=== PATIENT | male | born 1940 | race African-American/Black ===

== ENCOUNTER 2017-04-27 16:09 | Inpatient (IN) | payer MEDICARE ==
[2017-04-27 16:53] LABS: % BASOPHILS 0.2 % (0.0-2.0); % EOSINOPHILS 3.1 % (0.0-5.0); % LYMPHOCYTES 38.8 % (20.0-50.0); % MONOCYTES 10.3 % (2.0-10.0); % NEUTROPHILS 47.6 % (40.0-80.0); HEMATOCRIT 48.3 % (39.0-49.0); HEMOGLOBIN 16.1 gm/dL (12.6-17.4); MEAN CELL VOLUME 93.8 fl (80-99); MEAN CORPUSCULAR HEMOGLOBIN 31.3 pg (27.0-31.0); MEAN CORPUSCULAR HGB CONC 33.4 pg (28.0-36.0); MEAN PLATELET VOLUME 7.9 fl; NEUTROPHILE ABSOLUTE 3.4 Th/cmm (1.8-8.0); RED BLOOD COUNT 5.15 Mil/cmm (3.80-5.80); RED CELL DISTRIBUTION WIDTH 11.8 % (11.5-20.0)
[2017-04-27 17:18] LABS: ALB/GLOB RATIO 1.1 (1.0-1.8); ALKALINE PHOSPHATASE 83 U/L (34-104); ANION GAP 10.5 (7.0-16.0); BILIRUBIN,TOTAL 0.5 mg/dL (0.3-1.0); BUN - UREA NITROGEN 18 mg/dL (7-25); BUN/CREATININE RATIO 25.7; CALCIUM SERUM 10.2 mg/dL (8.6-10.3); CARBON DIOXIDE 24.6 mEq/L (21.0-31.0); CHLORIDE 106 mEq/L (98-107); CREATININE - SERUM 0.7 mg/dL (0.7-1.3); GLUCOSE 96 mg/dL (70-105); POTASSIUM SERUM 4.1 mEq/L (3.5-5.1); SGOT 39 U/L (13-39); SGPT/ALT 50 U/L (7-52); SODIUM SERUM 137 mEq/L (136-145)
[2017-04-27 17:25] LABS: PLATELET COUNT 198 Th/cmm (150-400)
--- NOTE | 2017-04-27 17:37 | ED Physician Chart ---
Chief Complaint/HPI - Patient Information Date Seen:: 04/27/17 Time Seen:: 17:32 Chief Complaint:: aggressive behavior History of Present Illness:: [place] sent from [place] for aggressive behavior with angry outbursts. he is on lexapro. pt has dementia hx and is unable to corroborate hx. no recent illness, fever etc. no n/v/d. Allergies:: Allergies Allergy/AdvReac Type Severity Reaction Status Date / Time No Known Allergies Allergy Verified 06/26/16 17:23 Vitals:: Vital Signs - 8 hr 04/27/17 16:24 Temp 98.9 F HR 74 RR 16 BP 133/81 O2 Sat % 98 Historian:: Patient, Medical Records Review:: Transfer documents Reviewed, Patient unable to respond Review of Systems - Review of Systems General/Constitutional: No fever, No chills, No weight loss, No weakness, No diaphoresis, No edema, No loss of appetite Skin: No skin lesions, No rash, No bruising Head: No headache, No light-headedness Eyes: No loss of vision, No pain, No diplopia ENT: No earache, No nasal drainage, No sore throat, No tinnitus Neck: No neck pain, No swelling, No thyromegaly, No stiffness, No mass noted Cardio Vascular: No chest pain, No palpitations, No PND, No orthopnea, No edema Pulmonary: No SOB, No cough, No sputum, No wheezing GI: No nausea, No vomiting, No diarrhea, No pain, No melena, No hematochezia, No constipation, No hematemesis G/U: No dysuria, No frequency, No hematuria Musculoskeletal: No bone or joint pain, No back pain, No muscle pain Endocrine: No polyuria, No polydipsia Psychiatric: No prior psych history, No depression, No anxiety, No suicidal ideation Hematopoietic: No bruising, No lymphadenopathy Allergic/Immuno: No urticaria, No angioedema Neurological: No syncope, No focal symptoms, No weakness, No paresthesia, No headache, No seizure, No dizziness, No confusion, No vertigo Past Medical History - Past Medical History Past Medical History: CAD, Asthma/COPD, Seizures, Dementia, Other (liver chirosis/encephalopathy, ) Social History: Care Facility Psychiatricy History: Dementia, Other (psychosis) Medication: Reviewed Family Medical History - Family Member Mother History Unknown: Yes Ethnicity: Unknown Living Status: Unknown Hx Family Cancer: No Hx Family Coronary Artery Disease: No Hx Family Congestive Heart Failure: No Hx Family Hypertension: Yes Hx Family Stroke: No Hx Family Diabetes: Yes Hx Family Seizures: No Hx Family Dementia: No Hx Family AIDS: No Hx Family HIV: No Hx Family COPD: No Hx Family Hepatitis: Yes Hx Family Psychiatric Problems: No Hx Family Tuberculosis: No Physical Exam - Physical Examination General/Constitutional: Awake, Well-developed, well-nourished, Alert, No distress, GCS 15, Non-toxic appearing, Ambulatory Other Gen/Cons comments:: thin male...talks to self. currently calm and cooperating but some dementia level is evident. not good med historian. Head: Atraumatic Eyes: Lids, conjuctiva normal, PERRL, EOMI Skin: Nl inspection, No rash, No skin lesions, No ecchymosis, Well hydrated, No lymphadenopathy ENMT: External ears, nose nl, Nasal exam nl, Lips, teeth, gums nl Neck: Nontender, Full ROM w/o pain, No JVD, No nuchal rigidity, No bruit, No mass, No stridor Respiratory: Nl effort/Exclusion, Clear to Auscultation, No Wheeze/Rhonchi/Rales Cardio Vascular: RRR, No murmur, gallop, rubs, NL S1 S2 GI: No tenderness/rebounding/guarding, No organomegaly, No hernia, Normal BS's, Nondistended, No mass/bruits, No McBurney tenderness Other GI comments:: old vert abd sx scar. colostomy at llq of abd appears viable/no infection. pos nabs. nontndr abd. : No CVA tenderness Extremities: No tenderness or effusion, Full ROM, normal strength in all extremities, No edema, Normal digits & nails Neuro/Psych: Alert/oriented, DTR's symmetric, Normal sensory exam, Normal motor strength, Judgement/insight normal, Mood normal, Normal gait, No focal deficits Misc: normal gait, Normal back, No paraspinal tenderness Labs/Radiology/EKG Results - Lab Results Results: Laboratory Tests 04/27/17 04/27/17 16:44 16:44 WBC 7.0 D RBC 5.15 Hgb 16.1 Hct 48.3 MCV 93.8 MCH 31.3 H MCHC Differential 33.4 RDW 11.8 Plt Count 198 D MPV 7.9 Neutrophils % 47.6 Lymphocytes % 38.8 Monocytes % 10.3 H Eosinophils % 3.1 Basophils % 0.2 Sodium 137 Potassium 4.1 Chloride 106 Carbon Dioxide 24.6 Anion Gap 10.5 BUN 18 Creatinine 0.7 Est GFR ( Amer) TNP Est GFR (Non-Af Amer) TNP BUN/Creatinine Ratio 25.7 Glucose 96 Calcium 10.2 Total Bilirubin 0.5 AST 39 ALT 50 Alkaline Phosphatase 83 Total Protein 8.1 Albumin 4.3 Globulin 3.8 Albumin/Globulin Ratio 1.1 - EKG Interpretations EKG Time:: 16:45 Rate & Rhythm: nsr 86 [place]: 66 Intervals: qtc 443 ED Septic Shock - . Is Septic Shock (SBP<90, OR Lactate>4 mmol\L) present?: No - <6hrs of presentation: Vital Signs: Vital Signs - 8 hr /05/06 16:24 Temp 98.9 F HR 74 RR 16 BP 133/81 O2 Sat % 98 Reassessment (Disposition) - Reassessment Reassessment:: 6;30pm //labs ok//pt clear for geripsych//staff aware//awaits transfer// pt has been ok in ed...he is having occasional episodes of rude outburst but at a level of volume and frequency we are able to tolerate so far... Reassessment Condition:: Unchanged - Diagnosis Diagnosis:: 1 agitation / aggression / difficult behavior 2 medically clear for geripsych admission - Patient Disposition Admitted to:: [facility] Condition at Disposition:: Unchanged ED Discharge Plan - Patient Disposition Instructions: Psychosis
[2017-04-27] MEDS ORDERED: Maalox 30 mL Cup PO PRN (20:25)
[2017-04-27] MEDS ORDERED: Magnesium Hydroxide (MOM) 30 mL UDC PO PRN (20:28)
--- NOTE | 2017-04-27 21:06 | Admit Criteria Form ---
Admit Criteria Forms - Admit Criteria Diagnosis: PSYCHIATRIC DISORDERS (Place 'X' for any and all applicable criteria): Ongoing inpatient care may be needed for 1 or more of the following(1)(2)(3)(4)( 6)(7)(8): [X ]I. Danger to self or others not manageable at lower level of care. [ ]II. Grave disability (eg, inability to perform self care necessary at lower level of care) [X ]III. Agitation or inappropriate behavior interfering with care for primary condition (eg, attempting to discontinue lines or drains prematurely, unable to cooperate with respiratory care) [ ]IV. Severe disability or disorder indicated by ALL of the following: [ ]a) Severe behavioral health disorder-related symptoms or condition indicated by 1 or more of the following: [ ]i) Severe problem with cognition, memory, judgment, or impulse control [ ]ii) Severe clinical manifestations (eg, hallucinations, delusions, other acute psychotic symptoms, alice, extreme agitation or anxiety) [ ]b) Patient management at lower level of care is not feasible until acute intervention or modification is initiated. Extended stay beyond goal length of stay for the primary condition may be needed until ALLof the following are present(1)(2)(3)(4)(722)(23): [ ]a) Danger to self or others is absent or manageable at lower level of care [ ]b) Behavior crisis management, including physical or chemical restraints, is required and is not available at a lower level of care. [ ]c) Behavioral symptoms (e.g., agitation, somnolence, inappropriate behavior) are present, and are not manageable at a lower level of care. [ ]d) Patient cannot understand follow-up treatment and crisis plan. [ ]e) Provider and supports are sufficiently available at lower level of care. [ ]f) Patient can participate (e.g., verify absence of plan for harm) and is in needed of monitoring. The [facility] content [facility] by [facility] has been revised. The portions of the content which have been revised are identified through the use of italic text or in bold, and [facility] [employer] has neither reviewed nor approved the modified material. All other unmodified content is copyright [facility]. Please see references footnoted in the original [facility] edition 2017 Admit Criteria Met?: Yes
--- NOTE | 2017-04-27 23:57 | History & Physical ---
ADMIT DATE: 04/27/2017 CHIEF COMPLAINT: Severe psychosis. HISTORY OF PRESENT ILLNESS: The patient is a 76-year-old male with long history of dementia, degenerative joint disease, COPD, admitted to [facility] for advanced treatment. The patient is admitted under Dr. Morris's service. The patient is a poor historian. Apparently, the patient has been very confused and combative. PAST MEDICAL HISTORY: Significant for dementia, degenerative joint disease, COPD, chronic constipation. PAST SURGICAL HISTORY: No recent surgery. ALLERGIES: None. MEDICATIONS: Follow admission reconciliation. SOCIAL HISTORY: Ex-smoker, no alcohol or drugs. FAMILY HISTORY: Noncontributory. REVIEW OF SYSTEMS: RENAL SYSTEM: No history of chronic renal disorder. CARDIOVASCULAR SYSTEM: No coronary artery disease. ENDOCRINE SYSTEM: No diabetes or thyroid problem. GASTROINTESTINAL SYSTEM: No upper or lower gastrointestinal bleed. NEUROLOGICAL SYSTEM: No seizure disorder. MUSCULOSKELETAL SYSTEM: Has degenerative joint disease. PHYSICAL EXAMINATION: GENERAL: He is awake, not coherent. VITAL SIGNS: Temperature 97.8, heart rate 69, blood pressure 155/82. HEENT: Normocephalic. Pupils reacting equal to light and accommodation. Sclerae clear. NECK: Supple. Negative for lymphadenopathy, JVD, or bruit. CHEST: ____ bilateral. Mildly diminished. No wheezing. HEART: S1, S2 normal. No murmur, gallop or rub. ABDOMEN: Soft, bowel sounds positive. EXTREMITIES: No edema. NEUROLOGIC: He is awake, alert, not fully oriented. LABORATORY DATA: White blood cells 7.0, hemoglobin 16.1, hematocrit 48.3, platelet is 198. Sodium 137, potassium 4.1, BUN 18, creatinine 0.7. TSH 1. ASSESSMENT: 1. Chronic obstructive pulmonary disease. 2. Degenerative joint disease. 3. Chronic constipation. 4. Dementia. 5. Psychosis. PLAN: The patient is admitted to the hospital under Dr. Morris's service. Medical problems to be addressed during this hospitalization is psychosis, dementia. Medical problems to be addressed after discharge is dementia. The patient is medically stable for activity. Thank you, Dr. Morris for asking me to see your patient. JOB# [id number]
--- NOTE | 2017-04-28 01:40 | Psychosocial Evaluation ---
DATE OF SERVICE: 04/27/2017 IDENTIFYING DATA: The patient is a 76-year-old [facility] Information obtained by directly interviewing the patient as well as reviewing the admission papers. JUSTIFICATION OF HOSPITALIZATION: The patient is admitted on a voluntary basis in view of his agitated behavior, screaming, and yelling. CHIEF COMPLAINT: "Don't ask me. You know it." HISTORY OF PRESENT ILLNESS: This is one of multiple psychiatric hospitalizations for this patient who is a resident of the [facility]. The patient is reported to have getting easily frustrated, screaming, and yelling and not able to follow the directions. Staff are having difficult time to redirect the patient. Sleep and appetite prior to the hospitalization are reported to be poor. The patient also has been refusing to comply with the treatment. The patient has been referred over here for stabilization. PAST PSYCHIATRIC HISTORY: Please refer to the above. MEDICAL HISTORY AND PHYSICAL EXAMINATION: Per the primary care physician. PHYSICAL OR SEXUAL ABUSE HISTORY: None. LEGAL PROBLEMS: None. STRENGTH AND ASSETS: The patient is poorly motivated. SOCIAL HISTORY: The patient is a resident of the [facility] facility. MENTAL STATUS EXAMINATION: The patient looks his stated age, thin built, superficially cooperative. Eye contact is poor. Mood is noted to be irritable. Affect is constricted and very labile. The patient is screaming and yelling at this time. Impulse control seems to be extremely poor. Insight and judgment are also noted to be very much impaired. The patient has paranoid delusions, but denies any command hallucinations. The patient is getting easily confused and needs to be redirected to get him focused to ____ answer. Attention span and concentration are noted to be poor. The patient's behavior is a great danger to self and others. DIAGNOSTIC IMPRESSION: AXIS IA: Psychotic disorder, unspecified. AXIS IB: Dementia and behavioral disorder secondary to it. AXIS II: None. AXIS III: Per primary care physician. IMMEDIATE TREATMENT PLAN: The patient is going to be observed on inpatient unit, provided with supportive psychotherapy. The patient is going to be closely monitored. I encouraged to participate in groups and verbalize the concerns. Once stabilized, the patient is going to be discharged. The patient is going to be continued on the Lexapro, and the patient is going to be placed on the Seroquel 12.5 mg and the patient is going to be encouraged to participate in the groups and verbalize the concerns rather than to act out. [facility]# [id number]
[2017-04-28] MEDS: Multivitamin w/ Minerals Tab PO SCH (09:58)
[2017-04-28] MEDS: Lactulose 10 Gm/15 mL 30mL UDC PO SCH ×2 (09:58→16:28)
--- NOTE | 2017-04-28 21:58 | Internal Medicine Prog Note ---
Internal Medicine Subjective - Subjective Service Date: 04/28/17 Patient seen and examined:: with staff Patient is:: awake, in bed, confused Per staff patient has:: no adverse event Internal Medicine Objective - Results Result Diagrams: 04/27/17 16:44 04/27/17 16:44 Recent Labs: Laboratory Last Values WBC 7.0 Th/cmm (4.8-10.8) D 04/27/17 16:44 RBC 5.15 Mil/cmm (3.80-5.80) 04/27/17 16:44 Hgb 16.1 gm/dL (12.6-17.4) 04/27/17 16:44 Hct 48.3 % (39.0-49.0) 04/27/17 16:44 MCV 93.8 fl (80-99) 04/27/17 16:44 MCH 31.3 pg (27.0-31.0) H 04/27/17 16:44 MCHC Differential 33.4 pg (28.0-36.0) 04/27/17 16:44 RDW 11.8 % (11.5-20.0) 04/27/17 16:44 Plt Count 198 Th/cmm (150-400) D 04/27/17 16:44 MPV 7.9 fl 04/27/17 16:44 Neutrophils % 47.6 % (40.0-80.0) 04/27/17 16:44 Lymphocytes % 38.8 % (20.0-50.0) 04/27/17 16:44 Monocytes % 10.3 % (2.0-10.0) H 04/27/17 16:44 Eosinophils % 3.1 % (0.0-5.0) 04/27/17 16:44 Basophils % 0.2 % (0.0-2.0) 04/27/17 16:44 Sodium 137 mEq/L (136-145) 04/27/17 16:44 Potassium 4.1 mEq/L (3.5-5.1) 04/27/17 16:44 Chloride 106 mEq/L (98-107) 04/27/17 16:44 Carbon Dioxide 24.6 mEq/L (21.0-31.0) 04/27/17 16:44 Anion Gap 10.5 (7.0-16.0) 04/27/17 16:44 BUN 18 mg/dL (7-25) 04/27/17 16:44 Creatinine 0.7 mg/dL (0.7-1.3) 04/27/17 16:44 Est GFR ( Amer) TNP 04/27/17 16:44 Est GFR (Non-Af Amer) TNP 04/27/17 16:44 BUN/Creatinine Ratio 25.7 04/27/17 16:44 Glucose 96 mg/dL (70-105) 04/27/17 16:44 Calcium 10.2 mg/dL (8.6-10.3) 04/27/17 16:44 Total Bilirubin 0.5 mg/dL (0.3-1.0) 04/27/17 16:44 AST 39 U/L (13-39) 04/27/17 16:44 ALT 50 U/L (7-52) 04/27/17 16:44 Alkaline Phosphatase 83 U/L (34-104) 04/27/17 16:44 Total Protein 8.1 gm/dL (6.0-8.3) 04/27/17 16:44 Albumin 4.3 gm/dL (4.2-5.5) 04/27/17 16:44 Globulin 3.8 gm/dL 04/27/17 16:44 Albumin/Globulin Ratio 1.1 (1.0-1.8) 04/27/17 16:44 TSH 1.00 uIU/ml (0.34-5.60) 04/27/17 16:44 - Physical Exam Vitals and I&O: Vital Signs Temp 98.4 F 04/28/17 14:00 Pulse 78 04/28/17 14:00 Resp 20 04/28/17 14:00 BP 140/94 04/28/17 14:00 Pulse Ox 98 04/28/17 14:00 Intake & Output 04/28/17 04/28/17 04/29/17 06:59 18:59 06:59 Intake Total 180 1200 Balance 180 1200 Weight (lbs) 53.524 kg Intake: Oral 180 1200 Other: # Voids 2 # Bowel Movements 1 1 Stool Characteristics Soft Soft Active Medications: Current Medications Acetaminophen (Tylenol) 650 mg PO Q4HR PRN PRN Reason: Pain (Mild) Stop: 06/26/17 20:24 Al Hydrox/Mg Hydrox/Simethicone (Maalox) 30 ml PO Q4HR PRN PRN Reason: GI DISTRESS Stop: 06/26/17 20:24 Escitalopram Oxalate (Lexapro) 5 mg PO DAILY LAURYN PRN Reason: Protocol Stop: 06/27/17 08:59 Lactulose (Cephulac) 20 gm PO BID LAURYN Stop: 06/27/17 08:59 Last Admin: 04/28/17 16:28 Dose: 20 gm Latanoprost (Xalatan 0.005% Oph Soln) 1 drop EACH EYE HS LAURYN Stop: 06/26/17 20:59 Last Admin: 04/28/17 20:41 Dose: Not Given Lorazepam (Ativan) 0.5 mg PO Q6HR PRN; Protocol PRN Reason: Anxiety Stop: 06/26/17 20:31 Magnesium Hydroxide (Milk Of Magnesia) 30 ml PO HS PRN PRN Reason: Constipation Stop: 06/26/17 20:27 Miscellaneous (Galantamine Hbr [Razadyne]) 8 mg PO BID [facility] Stop: 06/27/17 08:59 Miscellaneous (Timolol [Betimol]) 1 drop OP DAILY [facility] Stop: 06/27/17 08:59 Quetiapine Fumarate (Seroquel) 12.5 mg PO HS LAURYN PRN Reason: Protocol Stop: 06/26/17 20:59 Last Admin: 04/28/17 20:26 Dose: 12.5 mg Zolpidem Tartrate (Ambien) 5 mg PO HS PRN PRN Reason: Insomnia Stop: 06/26/17 20:27 Last Admin: 04/28/17 20:26 Dose: 5 mg General: demented HEENT: NC/AT, PERRLA, EOMI Neck: Supple, No JVD, No thyromegaly, +2 carotid pulse wo bruit, No LAD Lungs: CTAB Cardiovascular: RRR, Normal S1, Normal S2 Abdomen: soft, non-tender Extremities: clear Neurological: no change - Procedures Procedures: Procedures Procedure Code Date EMERGENCY DEPT VISIT 41359 12/02/11 GROUP PSYCHOTHERAPY 39110 10/13/12 OTHER GROUP THERAPY 94.44 09/05/14 Internal Medicine Assmt/Plan - Assessment Assessment: 1.COPD 2.DJD. 3.DEMENTIA - Plan Plan: CONTINUE ON CURRENT MEDICATION AND DIET.
--- NOTE | 2017-04-29 02:14 | Progress Notes ---
DATE: 04/28/2017 SUBJECTIVE: Staff was spoken to. The patient is interviewed. Mood is noted to be dysphoric. Coping skills are noted to be poor. Insight and judgment are also noted to be very much impaired. No side effects to the medications are noted. The patient has been isolative and withdrawn. The patient has been having difficult time to cope with the stress. The patient is currently on Lexapro 5 mg in the morning. The patient has been placed on Seroquel 12.5 mg at bedtime. The patient has been able to tolerate the medications. No side effects to the medications are noted at this time. ASSESSMENT: The patient is still impulsive. PLAN: To continue the patient with the current medications. I encouraged the patient to verbalize the concerns rather than to act out. JOB# [id number]
[2017-04-29] MEDS: Multivitamin w/ Minerals Tab PO SCH (08:52)
[2017-04-29] MEDS: Lactulose 10 Gm/15 mL 30mL UDC PO SCH ×2 (08:52→17:18)
--- NOTE | 2017-04-29 18:21 | Internal Medicine Prog Note ---
Internal Medicine Subjective - Subjective Service Date: 04/29/17 Patient seen and examined:: with staff Patient is:: awake, in bed, confused Per staff patient has:: no adverse event Internal Medicine Objective - Results Result Diagrams: 04/27/17 16:44 04/27/17 16:44 Recent Labs: Laboratory Last Values WBC 7.0 Th/cmm (4.8-10.8) D 04/27/17 16:44 RBC 5.15 Mil/cmm (3.80-5.80) 04/27/17 16:44 Hgb 16.1 gm/dL (12.6-17.4) 04/27/17 16:44 Hct 48.3 % (39.0-49.0) 04/27/17 16:44 MCV 93.8 fl (80-99) 04/27/17 16:44 MCH 31.3 pg (27.0-31.0) H 04/27/17 16:44 MCHC Differential 33.4 pg (28.0-36.0) 04/27/17 16:44 RDW 11.8 % (11.5-20.0) 04/27/17 16:44 Plt Count 198 Th/cmm (150-400) D 04/27/17 16:44 MPV 7.9 fl 04/27/17 16:44 Neutrophils % 47.6 % (40.0-80.0) 04/27/17 16:44 Lymphocytes % 38.8 % (20.0-50.0) 04/27/17 16:44 Monocytes % 10.3 % (2.0-10.0) H 04/27/17 16:44 Eosinophils % 3.1 % (0.0-5.0) 04/27/17 16:44 Basophils % 0.2 % (0.0-2.0) 04/27/17 16:44 Sodium 137 mEq/L (136-145) 04/27/17 16:44 Potassium 4.1 mEq/L (3.5-5.1) 04/27/17 16:44 Chloride 106 mEq/L (98-107) 04/27/17 16:44 Carbon Dioxide 24.6 mEq/L (21.0-31.0) 04/27/17 16:44 Anion Gap 10.5 (7.0-16.0) 04/27/17 16:44 BUN 18 mg/dL (7-25) 04/27/17 16:44 Creatinine 0.7 mg/dL (0.7-1.3) 04/27/17 16:44 Est GFR ( Amer) TNP 04/27/17 16:44 Est GFR (Non-Af Amer) TNP 04/27/17 16:44 BUN/Creatinine Ratio 25.7 04/27/17 16:44 Glucose 96 mg/dL (70-105) 04/27/17 16:44 Calcium 10.2 mg/dL (8.6-10.3) 04/27/17 16:44 Total Bilirubin 0.5 mg/dL (0.3-1.0) 04/27/17 16:44 AST 39 U/L (13-39) 04/27/17 16:44 ALT 50 U/L (7-52) 04/27/17 16:44 Alkaline Phosphatase 83 U/L (34-104) 04/27/17 16:44 Total Protein 8.1 gm/dL (6.0-8.3) 04/27/17 16:44 Albumin 4.3 gm/dL (4.2-5.5) 04/27/17 16:44 Globulin 3.8 gm/dL 04/27/17 16:44 Albumin/Globulin Ratio 1.1 (1.0-1.8) 04/27/17 16:44 TSH 1.00 uIU/ml (0.34-5.60) 04/27/17 16:44 - Physical Exam Vitals and I&O: Vital Signs Temp 98.4 F 04/29/17 06:46 Pulse 69 04/29/17 06:46 Resp 20 04/29/17 06:46 BP 131/79 04/29/17 06:46 Pulse Ox 97 04/29/17 06:46 Intake & Output 04/28/17 04/29/17 04/29/17 18:59 06:59 18:59 Intake Total 1200 120 Balance 1200 120 Intake: Oral 1200 120 Other: # Voids 3 # Bowel Movements 1 Stool Characteristics Soft Soft Active Medications: Current Medications Acetaminophen (Tylenol) 650 mg PO Q4HR PRN PRN Reason: Pain (Mild) Stop: 06/26/17 20:24 Al Hydrox/Mg Hydrox/Simethicone (Maalox) 30 ml PO Q4HR PRN PRN Reason: GI DISTRESS Stop: 06/26/17 20:24 Escitalopram Oxalate (Lexapro) 10 mg PO DAILY LAURYN PRN Reason: Protocol Stop: 06/27/17 08:59 Lactulose (Cephulac) 20 gm PO BID LAURYN Stop: 06/27/17 08:59 Last Admin: 04/29/17 17:18 Dose: 20 gm Latanoprost (Xalatan 0.005% Oph Soln) 1 drop EACH EYE HS LAURYN Stop: 06/26/17 20:59 Last Admin: 04/28/17 20:41 Dose: Not Given Lorazepam (Ativan) 0.5 mg PO Q6HR PRN; Protocol PRN Reason: Anxiety Stop: 06/26/17 20:31 Magnesium Hydroxide (Milk Of Magnesia) 30 ml PO HS PRN PRN Reason: Constipation Stop: 06/26/17 20:27 Miscellaneous (Galantamine Hbr [Razadyne]) 8 mg PO BID LAURYN Stop: 06/27/17 08:59 Miscellaneous (Timolol [Betimol]) 1 drop OP DAILY LAURYN Stop: 06/27/17 08:59 Quetiapine Fumarate (Seroquel) 12.5 mg PO HS LAURYN PRN Reason: Protocol Stop: 06/26/17 20:59 Last Admin: 04/28/17 20:26 Dose: 12.5 mg Zolpidem Tartrate (Ambien) 5 mg PO HS PRN PRN Reason: Insomnia Stop: 06/26/17 20:27 Last Admin: 04/28/17 20:26 Dose: 5 mg General: demented HEENT: NC/AT, PERRLA, EOMI Neck: Supple, No JVD, No thyromegaly, +2 carotid pulse wo bruit, No LAD Lungs: CTAB Cardiovascular: RRR, Normal S1, Normal S2 Abdomen: soft, non-tender Extremities: clear Neurological: no change - Procedures Procedures: Procedures Procedure Code Date EMERGENCY DEPT VISIT 75470 12/02/11 GROUP PSYCHOTHERAPY 31311 10/13/12 OTHER GROUP THERAPY 94.44 09/05/14 Internal Medicine Assmt/Plan - Assessment Assessment: 1.COPD 2.DJD. 3.DEMENTIA 4.CONSTIPATION - Plan Plan: CONTINUE ON CURRENT MEDICATION AND DIET.
--- NOTE | 2017-04-29 21:51 | Progress Notes ---
DATE: 04/29/2017 SUBJECTIVE: Staff was spoken to. The patient is interviewed. Mood is noted to be irritable. Affect is constricted. Coping skills are noted to be poor. The patient has been stating that with the addition of the medication he was able to sleep a little bit better. The patient, however, has been getting easily frustrated. No side effects to the medications are noted at this time. The patient is currently on 5 mg of the citalopram, which is going to be increased to 10 mg in view of his depression and the patient is going to be encouraged to verbalize the concerns rather than to act out. ASSESSMENT: The patient is still depressed. PLAN: To continue the patient with the supportive therapy and followup. JOB# [id number]
[2017-04-30] MEDS: Lactulose 10 Gm/15 mL 30mL UDC PO SCH ×2 (08:48→16:49)
[2017-04-30] MEDS: Multivitamin w/ Minerals Tab PO SCH (08:48)
[2017-04-30] MEDS: Timolol 0.25% Ophth Soln 5 mL Bottle EACH EYE SCH (08:51)
--- NOTE | 2017-04-30 15:14 | Internal Medicine Prog Note ---
Internal Medicine Subjective - Subjective Service Date: 04/30/17 Patient seen and examined:: without staff Patient is:: awake, in bed, confused Per staff patient has:: no adverse event Internal Medicine Objective - Results Result Diagrams: 04/27/17 16:44 04/27/17 16:44 Recent Labs: Laboratory Last Values WBC 7.0 Th/cmm (4.8-10.8) D 04/27/17 16:44 RBC 5.15 Mil/cmm (3.80-5.80) 04/27/17 16:44 Hgb 16.1 gm/dL (12.6-17.4) 04/27/17 16:44 Hct 48.3 % (39.0-49.0) 04/27/17 16:44 MCV 93.8 fl (80-99) 04/27/17 16:44 MCH 31.3 pg (27.0-31.0) H 04/27/17 16:44 MCHC Differential 33.4 pg (28.0-36.0) 04/27/17 16:44 RDW 11.8 % (11.5-20.0) 04/27/17 16:44 Plt Count 198 Th/cmm (150-400) D 04/27/17 16:44 MPV 7.9 fl 04/27/17 16:44 Neutrophils % 47.6 % (40.0-80.0) 04/27/17 16:44 Lymphocytes % 38.8 % (20.0-50.0) 04/27/17 16:44 Monocytes % 10.3 % (2.0-10.0) H 04/27/17 16:44 Eosinophils % 3.1 % (0.0-5.0) 04/27/17 16:44 Basophils % 0.2 % (0.0-2.0) 04/27/17 16:44 Sodium 137 mEq/L (136-145) 04/27/17 16:44 Potassium 4.1 mEq/L (3.5-5.1) 04/27/17 16:44 Chloride 106 mEq/L (98-107) 04/27/17 16:44 Carbon Dioxide 24.6 mEq/L (21.0-31.0) 04/27/17 16:44 Anion Gap 10.5 (7.0-16.0) 04/27/17 16:44 BUN 18 mg/dL (7-25) 04/27/17 16:44 Creatinine 0.7 mg/dL (0.7-1.3) 04/27/17 16:44 Est GFR ( Amer) TNP 04/27/17 16:44 Est GFR (Non-Af Amer) TNP 04/27/17 16:44 BUN/Creatinine Ratio 25.7 04/27/17 16:44 Glucose 96 mg/dL (70-105) 04/27/17 16:44 Calcium 10.2 mg/dL (8.6-10.3) 04/27/17 16:44 Total Bilirubin 0.5 mg/dL (0.3-1.0) 04/27/17 16:44 AST 39 U/L (13-39) 04/27/17 16:44 ALT 50 U/L (7-52) 04/27/17 16:44 Alkaline Phosphatase 83 U/L (34-104) 04/27/17 16:44 Total Protein 8.1 gm/dL (6.0-8.3) 04/27/17 16:44 Albumin 4.3 gm/dL (4.2-5.5) 04/27/17 16:44 Globulin 3.8 gm/dL 04/27/17 16:44 Albumin/Globulin Ratio 1.1 (1.0-1.8) 04/27/17 16:44 TSH 1.00 uIU/ml (0.34-5.60) 04/27/17 16:44 - Physical Exam Vitals and I&O: Vital Signs Temp 98.4 F 04/29/17 06:46 Pulse 69 04/29/17 06:46 Resp 20 04/29/17 06:46 BP 131/79 04/29/17 06:46 Pulse Ox 97 04/29/17 06:46 Intake & Output 04/29/17 04/30/17 04/30/17 18:59 06:59 18:59 Intake Total 800 Balance 800 Intake: Oral 800 Other: # Voids 1 Stool Characteristics Soft Soft Brown Brown Active Medications: Current Medications Acetaminophen (Tylenol) 650 mg PO Q4HR PRN PRN Reason: Pain (Mild) Stop: 06/26/17 20:24 Al Hydrox/Mg Hydrox/Simethicone (Maalox) 30 ml PO Q4HR PRN PRN Reason: GI DISTRESS Stop: 06/26/17 20:24 Escitalopram Oxalate (Lexapro) 10 mg PO DAILY LAURYN PRN Reason: Protocol Stop: 06/27/17 08:59 Last Admin: 04/30/17 08:49 Dose: 10 mg Galantamine Hydrobromide (Razadyne) 8 mg PO BID LAURYN Stop: 06/27/17 08:59 Last Admin: 04/30/17 08:49 Dose: 8 mg Lactulose (Cephulac) 20 gm PO BID LAURYN Stop: 06/27/17 08:59 Last Admin: 04/30/17 08:48 Dose: 20 gm Latanoprost (Xalatan 0.005% Ophth Soln) 1 drop EACH EYE HS LAURYN Stop: 06/26/17 20:59 Last Admin: 04/29/17 21:06 Dose: 1 drop Lorazepam (Ativan) 0.5 mg PO Q6HR PRN; Protocol PRN Reason: Anxiety Stop: 06/26/17 20:31 Magnesium Hydroxide (Milk Of Magnesia) 30 ml PO HS PRN PRN Reason: Constipation Stop: 06/26/17 20:27 Quetiapine Fumarate (Seroquel) 12.5 mg PO HS LAURYN PRN Reason: Protocol Stop: 06/26/17 20:59 Last Admin: 04/29/17 21:06 Dose: 12.5 mg Timolol Maleate (Timoptic 0.25% Ophth Soln) 1 drop EACH EYE DAILY LAURYN Stop: 06/27/17 08:59 Last Admin: 04/30/17 08:51 Dose: 1 drop Zolpidem Tartrate (Ambien) 5 mg PO HS PRN PRN Reason: Insomnia Stop: 06/26/17 20:27 Last Admin: 04/28/17 20:26 Dose: 5 mg General: demented HEENT: NC/AT, PERRLA, EOMI Neck: Supple, No JVD, No thyromegaly, +2 carotid pulse wo bruit, No LAD Lungs: CTAB Cardiovascular: RRR, Normal S1, Normal S2 Abdomen: soft, non-tender Extremities: clear Neurological: no change - Procedures Procedures: Procedures Procedure Code Date EMERGENCY DEPT VISIT 57766 12/02/11 GROUP PSYCHOTHERAPY 35101 10/13/12 OTHER GROUP THERAPY 94.44 09/05/14 Internal Medicine Assmt/Plan - Assessment Assessment: 1.COPD 2.DJD. 3.DEMENTIA 4.CONSTIPATION - Plan Plan: CONTINUE ON CURRENT MEDICATION AND DIET.
--- NOTE | 2017-04-30 23:33 | Progress Notes ---
DATE: 04/30/2017 SUBJECTIVE: Staff was spoken to. The patient is interviewed. Mood is noted to be less irritable, but the patient is noted to be depressed, isolative, and withdrawn. Coping skills are noted to be poor. The patient has been still getting frustrated and has been getting paranoid. No side effects to the medications are noted. The patient is currently on 12.5 mg of the Seroquel, which is going to be increased to 25 mg. The patient is going to be followed up with supportive therapy. The patient is going to be closely monitored for any adverse effects. ASSESSMENT: The patient is still depressed and agitated. PLAN: To continue the patient with Lexapro and Seroquel and follow up. JOB# [id number]
[2017-05-01] MEDS: Lactulose 10 Gm/15 mL 30mL UDC PO SCH ×2 (08:50→16:44)
[2017-05-01] MEDS: Multivitamin w/ Minerals Tab PO SCH (08:52)
[2017-05-01] MEDS: Timolol 0.25% Ophth Soln 5 mL Bottle EACH EYE SCH (08:52)
--- NOTE | 2017-05-01 12:06 | Progress Notes ---
DATE: 05/01/2017 SUBJECTIVE: Staff was spoken to. The patient is interviewed. Mood is noted to be depressed. Affect is constricted. The patient is isolated and withdrawn. Coping skills are noted to be poor at this time. The patient has been not presenting with any major behavioral problem, but tends to be isolative and withdrawn. No side effects to the medications are noted. The patient is also reported to have been sleeping all the time and hence it is decided to hold the Seroquel tonight. PLAN: Continue the Lexapro 10 mg and follow the patient with supportive therapy and patient is going to be closely monitored for any aggressive behavior. JOB# [id number]
--- NOTE | 2017-05-01 15:35 | Internal Medicine Prog Note ---
Internal Medicine Subjective - Subjective Service Date: 05/01/17 Patient seen and examined:: without staff Patient is:: awake, in bed, confused Per staff patient has:: no adverse event Internal Medicine Objective - Results Result Diagrams: 04/27/17 16:44 04/27/17 16:44 Recent Labs: Laboratory Last Values WBC 7.0 Th/cmm (4.8-10.8) D 04/27/17 16:44 RBC 5.15 Mil/cmm (3.80-5.80) 04/27/17 16:44 Hgb 16.1 gm/dL (12.6-17.4) 04/27/17 16:44 Hct 48.3 % (39.0-49.0) 04/27/17 16:44 MCV 93.8 fl (80-99) 04/27/17 16:44 MCH 31.3 pg (27.0-31.0) H 04/27/17 16:44 MCHC Differential 33.4 pg (28.0-36.0) 04/27/17 16:44 RDW 11.8 % (11.5-20.0) 04/27/17 16:44 Plt Count 198 Th/cmm (150-400) D 04/27/17 16:44 MPV 7.9 fl 04/27/17 16:44 Neutrophils % 47.6 % (40.0-80.0) 04/27/17 16:44 Lymphocytes % 38.8 % (20.0-50.0) 04/27/17 16:44 Monocytes % 10.3 % (2.0-10.0) H 04/27/17 16:44 Eosinophils % 3.1 % (0.0-5.0) 04/27/17 16:44 Basophils % 0.2 % (0.0-2.0) 04/27/17 16:44 Sodium 137 mEq/L (136-145) 04/27/17 16:44 Potassium 4.1 mEq/L (3.5-5.1) 04/27/17 16:44 Chloride 106 mEq/L (98-107) 04/27/17 16:44 Carbon Dioxide 24.6 mEq/L (21.0-31.0) 04/27/17 16:44 Anion Gap 10.5 (7.0-16.0) 04/27/17 16:44 BUN 18 mg/dL (7-25) 04/27/17 16:44 Creatinine 0.7 mg/dL (0.7-1.3) 04/27/17 16:44 Est GFR ( Amer) TNP 04/27/17 16:44 Est GFR (Non-Af Amer) TNP 04/27/17 16:44 BUN/Creatinine Ratio 25.7 04/27/17 16:44 Glucose 96 mg/dL (70-105) 04/27/17 16:44 Calcium 10.2 mg/dL (8.6-10.3) 04/27/17 16:44 Total Bilirubin 0.5 mg/dL (0.3-1.0) 04/27/17 16:44 AST 39 U/L (13-39) 04/27/17 16:44 ALT 50 U/L (7-52) 04/27/17 16:44 Alkaline Phosphatase 83 U/L (34-104) 04/27/17 16:44 Total Protein 8.1 gm/dL (6.0-8.3) 04/27/17 16:44 Albumin 4.3 gm/dL (4.2-5.5) 04/27/17 16:44 Globulin 3.8 gm/dL 04/27/17 16:44 Albumin/Globulin Ratio 1.1 (1.0-1.8) 04/27/17 16:44 TSH 1.00 uIU/ml (0.34-5.60) 04/27/17 16:44 - Physical Exam Vitals and I&O: Vital Signs Temp 98.6 F 05/01/17 06:15 Pulse 70 05/01/17 06:15 Resp 18 05/01/17 06:15 BP 139/80 05/01/17 06:15 Pulse Ox 99 05/01/17 06:15 Intake & Output 04/30/17 05/01/17 05/01/17 18:59 06:59 18:59 Intake Total 900 480 Output Total 400 Balance 900 80 Intake: Oral 900 480 Output: Stool 400 Other: # Voids 1 1 Stool Characteristics Soft Brown Active Medications: Current Medications Acetaminophen (Tylenol) 650 mg PO Q4HR PRN PRN Reason: Pain (Mild) Stop: 06/26/17 20:24 Al Hydrox/Mg Hydrox/Simethicone (Maalox) 30 ml PO Q4HR PRN PRN Reason: GI DISTRESS Stop: 06/26/17 20:24 Escitalopram Oxalate (Lexapro) 10 mg PO DAILY LAURYN PRN Reason: Protocol Stop: 06/27/17 08:59 Last Admin: 05/01/17 08:52 Dose: 10 mg Galantamine Hydrobromide (Razadyne) 8 mg PO BID LAURYN Stop: 06/27/17 08:59 Last Admin: 05/01/17 08:51 Dose: 8 mg Lactulose (Cephulac) 20 gm PO BID LAURYN Stop: 06/27/17 08:59 Last Admin: 05/01/17 08:50 Dose: 20 gm Latanoprost (Xalatan 0.005% Oph Soln) 1 drop EACH EYE HS LAURYN Stop: 06/26/17 20:59 Last Admin: 04/30/17 21:48 Dose: 1 drop Lorazepam (Ativan) 0.5 mg PO Q6HR PRN; Protocol PRN Reason: Anxiety Stop: 06/26/17 20:31 Magnesium Hydroxide (Milk Of Magnesia) 30 ml PO HS PRN PRN Reason: Constipation Stop: 06/26/17 20:27 Timolol Maleate (Timoptic 0.25% Oph Soln) 1 drop EACH EYE DAILY LAURYN Stop: 06/27/17 08:59 Last Admin: 05/01/17 08:52 Dose: 1 drop Zolpidem Tartrate (Ambien) 5 mg PO HS PRN PRN Reason: Insomnia Stop: 06/26/17 20:27 Last Admin: 04/28/17 20:26 Dose: 5 mg General: demented HEENT: NC/AT, PERRLA, EOMI Neck: Supple, No JVD, No thyromegaly, +2 carotid pulse wo bruit, No LAD Lungs: CTAB Cardiovascular: RRR, Normal S1, Normal S2 Abdomen: soft, non-tender Extremities: clear Neurological: no change - Procedures Procedures: Procedures Procedure Code Date EMERGENCY DEPT VISIT 88662 12/02/11 GROUP PSYCHOTHERAPY 05805 10/13/12 OTHER GROUP THERAPY 94.44 09/05/14 Internal Medicine Assmt/Plan - Assessment Assessment: 1.COPD 2.DJD. 3.DEMENTIA 4.CONSTIPATION - Plan Plan: CONTINUE ON CURRENT MEDICATION AND DIET. Nutritional Asmnt/Malnutr-PDOC - Dietary Evaluation Malnutrition Findings (Please click <Entered> for more info): Nutritional Asmnt/Malnutrition Start: 04/28/17 11: 48 Text: Status: Complete Freq: Document 04/30/17 19:00 [facility] (Rec: 04/30/17 19:07 [facility] [id number]) Nutritional Asmnt/Malnutrition Patient General Information Nutritional Screening High Risk Screening Diagnosis Psychotic disorder, dementia Pertinent Medical Hx/Surgical Hx Dementia, DJD, COPD, chronic constipation Subjective Information Pt is a 76-year-old male from [facility] admitted with chief complaint of severe psychosis. Pt was asleep during time of visit. Mild temporal wasting noted. RD weighed pt's wt via bedscale. 127.4#/57.9 kg with BMI 17.3 kg/m2. Pt has colostomy. Current Diet Order/ Nutrition Support Regular Patient / S.O Can't verbalize diet edu Pertinent Medications Reviewed Pertinent Labs Reviewed Nutritional Hx/Data Height 1.83 m Height (Calculated Centimeters) 182.9 Current Weight (lbs) 57.788 kg Weight (Calculated Kilograms) 57.8 Weight (Calculated Grams) 71928.7 [place] Body Weight 172 % [place] Body Weight 74 Weight Status Underweight GI Symptoms GI Symptoms None Food Allergies No Skin Integrity/Comment: Abdirizak 19. Skin intact. Current %PO Good (75-100%) Estimated Nutritional Goals BEE in Kcals: Adj wt of IBW Calories/Kcals/Kg Based on IBW 78.2 kg to promote wt change towards IBW Kcals Calculated 4962-8624 kcals/day (25-30 kcals/kg) Protein: Adj wt of IBW Protein g/kg: Based on IBW 78.2 kg to promote wt change towards IBW Protein Calculated 78-94 gm/day (1-1.2 gm/kg) Fluid: ml 7096-0013 ml/day (1 ml/kcal) Nutritional Problem 1. Problem Problem Underwt related to Etiology possible inadequate energy intake vs increased energy expenditure, or malabsorption as evidenced by Signs/Symptoms: BMI 17.3 kg/m2. Malnutrition Alert Body Fat Depletion (Non-Severe) Mild Depletion Malnutrition Related to Morbid Obesity Malnutrition related to morbid obesity No Intervention/Recommendation Comments 1. Continue with current diet as it is adequate to meet estimated nutritional needs. Encourage consistent oral intake. 2. Will monitor need for nutrition oral supplement at follow up if PO intake decreases. Expected Outcomes/Goals Expected Outcomes/Goals Upward wt trend towards IBW. Physician Parameters for PEM Normal Weight % 75% - 85% (Moderate) Body Mass Index (BMI) 16 - 17.9 (Moderate) Serum Albumin (g/dl) 3.5 - 5.0 (Normal)
[2017-05-02] MEDS: Lactulose 10 Gm/15 mL 30mL UDC PO SCH ×2 (08:28→17:04)
[2017-05-02] MEDS: Multivitamin w/ Minerals Tab PO SCH (08:29)
[2017-05-02] MEDS: Timolol 0.25% Ophth Soln 5 mL Bottle EACH EYE SCH (08:29)
--- NOTE | 2017-05-02 17:08 | Internal Medicine Prog Note ---
Internal Medicine Subjective - Subjective Service Date: 05/02/17 Patient seen and examined:: without staff Patient is:: awake, in bed, confused Per staff patient has:: no adverse event Internal Medicine Objective - Results Result Diagrams: 04/27/17 16:44 04/27/17 16:44 Recent Labs: Laboratory Last Values WBC 7.0 Th/cmm (4.8-10.8) D 04/27/17 16:44 RBC 5.15 Mil/cmm (3.80-5.80) 04/27/17 16:44 Hgb 16.1 gm/dL (12.6-17.4) 04/27/17 16:44 Hct 48.3 % (39.0-49.0) 04/27/17 16:44 MCV 93.8 fl (80-99) 04/27/17 16:44 MCH 31.3 pg (27.0-31.0) H 04/27/17 16:44 MCHC Differential 33.4 pg (28.0-36.0) 04/27/17 16:44 RDW 11.8 % (11.5-20.0) 04/27/17 16:44 Plt Count 198 Th/cmm (150-400) D 04/27/17 16:44 MPV 7.9 fl 04/27/17 16:44 Neutrophils % 47.6 % (40.0-80.0) 04/27/17 16:44 Lymphocytes % 38.8 % (20.0-50.0) 04/27/17 16:44 Monocytes % 10.3 % (2.0-10.0) H 04/27/17 16:44 Eosinophils % 3.1 % (0.0-5.0) 04/27/17 16:44 Basophils % 0.2 % (0.0-2.0) 04/27/17 16:44 Sodium 137 mEq/L (136-145) 04/27/17 16:44 Potassium 4.1 mEq/L (3.5-5.1) 04/27/17 16:44 Chloride 106 mEq/L (98-107) 04/27/17 16:44 Carbon Dioxide 24.6 mEq/L (21.0-31.0) 04/27/17 16:44 Anion Gap 10.5 (7.0-16.0) 04/27/17 16:44 BUN 18 mg/dL (7-25) 04/27/17 16:44 Creatinine 0.7 mg/dL (0.7-1.3) 04/27/17 16:44 Est GFR ( Amer) TNP 04/27/17 16:44 Est GFR (Non-Af Amer) TNP 04/27/17 16:44 BUN/Creatinine Ratio 25.7 04/27/17 16:44 Glucose 96 mg/dL (70-105) 04/27/17 16:44 Calcium 10.2 mg/dL (8.6-10.3) 04/27/17 16:44 Total Bilirubin 0.5 mg/dL (0.3-1.0) 04/27/17 16:44 AST 39 U/L (13-39) 04/27/17 16:44 ALT 50 U/L (7-52) 04/27/17 16:44 Alkaline Phosphatase 83 U/L (34-104) 04/27/17 16:44 Total Protein 8.1 gm/dL (6.0-8.3) 04/27/17 16:44 Albumin 4.3 gm/dL (4.2-5.5) 04/27/17 16:44 Globulin 3.8 gm/dL 04/27/17 16:44 Albumin/Globulin Ratio 1.1 (1.0-1.8) 04/27/17 16:44 TSH 1.00 uIU/ml (0.34-5.60) 04/27/17 16:44 - Physical Exam Vitals and I&O: Vital Signs Temp 98.1 F 05/02/17 15:32 Pulse 76 05/02/17 15:32 Resp 18 05/02/17 15:32 BP 125/67 05/02/17 15:32 Pulse Ox 97 05/02/17 15:32 Intake & Output 05/01/17 05/02/17 05/02/17 18:59 06:59 18:59 Intake Total 120 Balance 120 Intake: Oral 120 Other: # Voids 3 Active Medications: Current Medications Acetaminophen (Tylenol) 650 mg PO Q4HR PRN PRN Reason: Pain (Mild) Stop: 06/26/17 20:24 Al Hydrox/Mg Hydrox/Simethicone (Maalox) 30 ml PO Q4HR PRN PRN Reason: GI DISTRESS Stop: 06/26/17 20:24 Escitalopram Oxalate (Lexapro) 10 mg PO DAILY LAURYN PRN Reason: Protocol Stop: 06/27/17 08:59 Last Admin: 05/02/17 08:29 Dose: 10 mg Galantamine Hydrobromide (Razadyne) 8 mg PO BID LAURYN Stop: 06/27/17 08:59 Last Admin: 05/02/17 17:06 Dose: 8 mg Lactulose (Cephulac) 20 gm PO BID LAURYN Stop: 06/27/17 08:59 Last Admin: 05/02/17 17:04 Dose: 20 gm Latanoprost (Xalatan 0.005% Oph Soln) 1 drop EACH EYE HS LAURYN Stop: 06/26/17 20:59 Last Admin: 05/01/17 20:43 Dose: 1 drop Lorazepam (Ativan) 0.5 mg PO Q6HR PRN; Protocol PRN Reason: Anxiety Stop: 06/26/17 20:31 Magnesium Hydroxide (Milk Of Magnesia) 30 ml PO HS PRN PRN Reason: Constipation Stop: 06/26/17 20:27 Timolol Maleate (Timoptic 0.25% Ophth Soln) 1 drop EACH EYE DAILY LAURYN Stop: 06/27/17 08:59 Last Admin: 05/02/17 08:29 Dose: 1 drop Zolpidem Tartrate (Ambien) 5 mg PO HS PRN PRN Reason: Insomnia Stop: 06/26/17 20:27 Last Admin: 05/01/17 23:01 Dose: 5 mg General: demented HEENT: NC/AT, PERRLA, EOMI Neck: Supple, No JVD, No thyromegaly, +2 carotid pulse wo bruit, No LAD Lungs: CTAB Cardiovascular: RRR, Normal S1, Normal S2 Abdomen: soft, non-tender Extremities: clear Neurological: no change - Procedures Procedures: Procedures Procedure Code Date EMERGENCY DEPT VISIT 68563 12/02/11 GROUP PSYCHOTHERAPY 56538 10/13/12 OTHER GROUP THERAPY 94.44 09/05/14 Internal Medicine Assmt/Plan - Assessment Assessment: 1.COPD 2.DJD. 3.DEMENTIA 4.CONSTIPATION - Plan Plan: CONTINUE ON CURRENT MEDICATION AND DIET. Nutritional Asmnt/Malnutr-PDOC - Dietary Evaluation Malnutrition Findings (Please click <Entered> for more info): Nutritional Asmnt/Malnutrition Start: 04/28/17 11: 48 Text: Status: Complete Freq: Document 04/30/17 19:00 [facility] (Rec: 04/30/17 19:07 [facility] [id number]) Nutritional Asmnt/Malnutrition Patient General Information Nutritional Screening High Risk Screening Diagnosis Psychotic disorder, dementia Pertinent Medical Hx/Surgical Hx Dementia, DJD, COPD, chronic constipation Subjective Information Pt is a 76-year-old male from [facility] admitted with chief complaint of severe psychosis. Pt was asleep during time of visit. Mild temporal wasting noted. RD weighed pt's wt via bedscale. 127.4#/57.9 kg with BMI 17.3 kg/m2. Pt has colostomy. Current Diet Order/ Nutrition Support Regular Patient / S.O Can't verbalize diet edu Pertinent Medications Reviewed Pertinent Labs Reviewed Nutritional Hx/Data Height 1.83 m Height (Calculated Centimeters) 182.9 Current Weight (lbs) 57.788 kg Weight (Calculated Kilograms) 57.8 Weight (Calculated Grams) 03240.7 [place] Body Weight 172 % [place] Body Weight 74 Weight Status Underweight GI Symptoms GI Symptoms None Food Allergies No Skin Integrity/Comment: Abdirizak 19. Skin intact. Current %PO Good (75-100%) Estimated Nutritional Goals BEE in Kcals: Adj wt of IBW Calories/Kcals/Kg Based on IBW 78.2 kg to promote wt change towards IBW Kcals Calculated 5897-2753 kcals/day (25-30 kcals/kg) Protein: Adj wt of IBW Protein g/kg: Based on IBW 78.2 kg to promote wt change towards IBW Protein Calculated 78-94 gm/day (1-1.2 gm/kg) Fluid: ml 9227-4199 ml/day (1 ml/kcal) Nutritional Problem 1. Problem Problem Underwt related to Etiology possible inadequate energy intake vs increased energy expenditure, or malabsorption as evidenced by Signs/Symptoms: BMI 17.3 kg/m2. Malnutrition Alert Body Fat Depletion (Non-Severe) Mild Depletion Malnutrition Related to Morbid Obesity Malnutrition related to morbid obesity No Intervention/Recommendation Comments 1. Continue with current diet as it is adequate to meet estimated nutritional needs. Encourage consistent oral intake. 2. Will monitor need for nutrition oral supplement at follow up if PO intake decreases. Expected Outcomes/Goals Expected Outcomes/Goals Upward wt trend towards IBW. Physician Parameters for PEM Normal Weight % 75% - 85% (Moderate) Body Mass Index (BMI) 16 - 17.9 (Moderate) Serum Albumin (g/dl) 3.5 - 5.0 (Normal)
--- NOTE | 2017-05-02 20:03 | Progress Notes ---
DATE: 05/02/2017 PSYCHIATRIC PROGRESS NOTE TIME PATIENT SEEN: 11:15 a.m. SUBJECTIVE: Staff was spoken to. The patient is interviewed. Mood is noted to be irritable. Affect is constricted. Insight and judgment are noted to be still impaired. The patient continues to be isolative and withdrawn. The patient has not been presenting with any aggression, but depression seems to be a major concern at this time. No side effects to the medications are noted. The patient is being closely monitored at this time for aggressive behavior. ASSESSMENT: The patient is still depressed. PLAN: To continue the patient with supportive therapy. I encouraged the patient to verbalize the concerns rather than to act out. Please note that the patient is not ready to be discharged to a lower level of care because of his depression and aggressive behavior. JOB# [id number]
[2017-05-03] MEDS: Multivitamin w/ Minerals Tab PO SCH (08:31)
[2017-05-03] MEDS: Timolol 0.25% Ophth Soln 5 mL Bottle EACH EYE SCH (08:32)
[2017-05-03] MEDS: Lactulose 10 Gm/15 mL 30mL UDC PO SCH ×2 (08:34→16:19)
--- NOTE | 2017-05-03 18:25 | Internal Medicine Prog Note ---
Internal Medicine Subjective - Subjective Service Date: 05/03/17 Patient seen and examined:: with staff Patient is:: awake, in bed, confused Per staff patient has:: no adverse event Internal Medicine Objective - Results Result Diagrams: 04/27/17 16:44 04/27/17 16:44 Recent Labs: Laboratory Last Values WBC 7.0 Th/cmm (4.8-10.8) D 04/27/17 16:44 RBC 5.15 Mil/cmm (3.80-5.80) 04/27/17 16:44 Hgb 16.1 gm/dL (12.6-17.4) 04/27/17 16:44 Hct 48.3 % (39.0-49.0) 04/27/17 16:44 MCV 93.8 fl (80-99) 04/27/17 16:44 MCH 31.3 pg (27.0-31.0) H 04/27/17 16:44 MCHC Differential 33.4 pg (28.0-36.0) 04/27/17 16:44 RDW 11.8 % (11.5-20.0) 04/27/17 16:44 Plt Count 198 Th/cmm (150-400) D 04/27/17 16:44 MPV 7.9 fl 04/27/17 16:44 Neutrophils % 47.6 % (40.0-80.0) 04/27/17 16:44 Lymphocytes % 38.8 % (20.0-50.0) 04/27/17 16:44 Monocytes % 10.3 % (2.0-10.0) H 04/27/17 16:44 Eosinophils % 3.1 % (0.0-5.0) 04/27/17 16:44 Basophils % 0.2 % (0.0-2.0) 04/27/17 16:44 Sodium 137 mEq/L (136-145) 04/27/17 16:44 Potassium 4.1 mEq/L (3.5-5.1) 04/27/17 16:44 Chloride 106 mEq/L (98-107) 04/27/17 16:44 Carbon Dioxide 24.6 mEq/L (21.0-31.0) 04/27/17 16:44 Anion Gap 10.5 (7.0-16.0) 04/27/17 16:44 BUN 18 mg/dL (7-25) 04/27/17 16:44 Creatinine 0.7 mg/dL (0.7-1.3) 04/27/17 16:44 Est GFR ( Amer) TNP 04/27/17 16:44 Est GFR (Non-Af Amer) TNP 04/27/17 16:44 BUN/Creatinine Ratio 25.7 04/27/17 16:44 Glucose 96 mg/dL (70-105) 04/27/17 16:44 Calcium 10.2 mg/dL (8.6-10.3) 04/27/17 16:44 Total Bilirubin 0.5 mg/dL (0.3-1.0) 04/27/17 16:44 AST 39 U/L (13-39) 04/27/17 16:44 ALT 50 U/L (7-52) 04/27/17 16:44 Alkaline Phosphatase 83 U/L (34-104) 04/27/17 16:44 Total Protein 8.1 gm/dL (6.0-8.3) 04/27/17 16:44 Albumin 4.3 gm/dL (4.2-5.5) 04/27/17 16:44 Globulin 3.8 gm/dL 04/27/17 16:44 Albumin/Globulin Ratio 1.1 (1.0-1.8) 04/27/17 16:44 TSH 1.00 uIU/ml (0.34-5.60) 04/27/17 16:44 - Physical Exam Vitals and I&O: Vital Signs Temp 98.2 F 05/03/17 15:52 Pulse 60 05/03/17 15:52 Resp 18 05/03/17 15:52 BP 130/78 05/03/17 15:52 Pulse Ox 96 05/03/17 15:52 Intake & Output 05/02/17 05/03/17 05/03/17 18:59 06:59 18:59 Intake Total 800 120 Balance 800 120 Intake: Oral 800 120 Other: # Voids 4 3 # Bowel Movements 1 1 Stool Characteristics Liquid Active Medications: Current Medications Acetaminophen (Tylenol) 650 mg PO Q4HR PRN PRN Reason: Pain (Mild) Stop: 06/26/17 20:24 Al Hydrox/Mg Hydrox/Simethicone (Maalox) 30 ml PO Q4HR PRN PRN Reason: GI DISTRESS Stop: 06/26/17 20:24 Escitalopram Oxalate (Lexapro) 10 mg PO DAILY LAURYN PRN Reason: Protocol Stop: 06/27/17 08:59 Last Admin: 05/03/17 08:31 Dose: 10 mg Galantamine Hydrobromide (Razadyne) 8 mg PO BID LAURYN Stop: 06/27/17 08:59 Last Admin: 05/03/17 16:19 Dose: 8 mg Lactulose (Cephulac) 20 gm PO BID LAURYN Stop: 06/27/17 08:59 Last Admin: 05/03/17 16:19 Dose: 20 gm Latanoprost (Xalatan 0.005% Oph Soln) 1 drop EACH EYE HS LAURYN Stop: 06/26/17 20:59 Last Admin: 05/02/17 20:19 Dose: 1 drop Lorazepam (Ativan) 0.5 mg PO Q6HR PRN; Protocol PRN Reason: Anxiety Stop: 06/26/17 20:31 Magnesium Hydroxide (Milk Of Magnesia) 30 ml PO HS PRN PRN Reason: Constipation Stop: 06/26/17 20:27 Timolol Maleate (Timoptic 0.25% Oph Soln) 1 drop EACH EYE DAILY [facility] Stop: 06/27/17 08:59 Last Admin: 05/03/17 08:32 Dose: 1 drop Zolpidem Tartrate (Ambien) 5 mg PO HS PRN PRN Reason: Insomnia Stop: 06/26/17 20:27 Last Admin: 05/01/17 23:01 Dose: 5 mg General: demented HEENT: NC/AT, PERRLA, EOMI Neck: Supple, No JVD, No thyromegaly, +2 carotid pulse wo bruit, No LAD Lungs: CTAB Cardiovascular: RRR, Normal S1, Normal S2 Abdomen: soft, non-tender Extremities: clear Neurological: no change - Procedures Procedures: Procedures Procedure Code Date EMERGENCY DEPT VISIT 59252 12/02/11 GROUP PSYCHOTHERAPY 45944 10/13/12 OTHER GROUP THERAPY 94.44 09/05/14 Internal Medicine Assmt/Plan - Assessment Assessment: 1.COPD 2.DJD. 3.DEMENTIA 4.CONSTIPATION - Plan Plan: CONTINUE ON CURRENT MEDICATION AND DIET. Nutritional Asmnt/Malnutr-PDOC - Dietary Evaluation Malnutrition Findings (Please click <Entered> for more info): Nutritional Asmnt/Malnutrition Start: 04/28/17 11: 48 Text: Status: Complete Freq: Document 04/30/17 19:[address] [facility] (Rec: 04/30/17 19:[address] [facility] [id number]) Nutritional Asmnt/Malnutrition Patient General Information Nutritional Screening High Risk Screening Diagnosis Psychotic disorder, dementia Pertinent Medical Hx/Surgical Hx Dementia, DJD, COPD, chronic constipation Subjective Information Pt is a 76-year-old male from [facility] admitted with chief complaint of severe psychosis. Pt was asleep during time of visit. Mild temporal wasting noted. RD weighed pt's wt via bedscale. 127.4#/57.9 kg with BMI 17.3 kg/m2. Pt has colostomy. Current Diet Order/ Nutrition Support Regular Patient / S.O Can't verbalize diet edu Pertinent Medications Reviewed Pertinent Labs Reviewed Nutritional Hx/Data Height 1.83 m Height (Calculated Centimeters) 182.9 Current Weight (lbs) 57.788 kg Weight (Calculated Kilograms) 57.8 Weight (Calculated Grams) 10488.7 Otter Body Weight 172 % Otter Body Weight 74 Weight Status Underweight GI Symptoms GI Symptoms None Food Allergies No Skin Integrity/Comment: Abdirizak Sharma. Skin intact. Current %PO Good (75-100%) Estimated Nutritional Goals BEE in Kcals: Adj wt of IBW Calories/Kcals/Kg Based on IBW 78.2 kg to promote wt change towards IBW Kcals Calculated 0312-4910 kcals/day (25-30 kcals/kg) Protein: Adj wt of IBW Protein g/kg: Based on IBW 78.2 kg to promote wt change towards IBW Protein Calculated 78-94 gm/day (1-1.2 gm/kg) Fluid: ml 1058-3121 ml/day (1 ml/kcal) Nutritional Problem 1. Problem Problem Underwt related to Etiology possible inadequate energy intake vs increased energy expenditure, or malabsorption as evidenced by Signs/Symptoms: BMI 17.3 kg/m2. Malnutrition Alert Body Fat Depletion (Non-Severe) Mild Depletion Malnutrition Related to Morbid Obesity Malnutrition related to morbid obesity No Intervention/Recommendation Comments 1. Continue with current diet as it is adequate to meet estimated nutritional needs. Encourage consistent oral intake. 2. Will monitor need for nutrition oral supplement at follow up if PO intake decreases. Expected Outcomes/Goals Expected Outcomes/Goals Upward wt trend towards IBW. Physician Parameters for PEM Normal Weight % 75% - 85% (Moderate) Body Mass Index (BMI) 16 - 17.9 (Moderate) Serum Albumin (g/dl) 3.5 - 5.0 (Normal)
--- NOTE | 2017-05-03 18:41 | Progress Notes ---
DATE: 05/03/2017 PSYCHIATRIC PROGRESS NOTE TIME PATIENT SEEN: 10:15 a.m. SUBJECTIVE: Staff was spoken to. The patient is interviewed. Mood is noted to be depressed. Affect is constricted. The patient's insight and judgment are noted to be still impaired. Impulse control seems to be limited. Coping skills are also noted to have limited. The patient is getting easily upset when he does not get his way. The patient is currently on Lexapro 10 mg and is able to tolerate the medication. ASSESSMENT: The patient is still depressed and is not ready to be discharged to a lower level of care. PLAN: To continue the patient with supportive therapy. I encouraged the patient to verbalize the concerns rather than to act out. [facility]# [id number]
[2017-05-04] MEDS: Lactulose 10 Gm/15 mL 30mL UDC PO SCH (10:35)
[2017-05-04] MEDS: Multivitamin w/ Minerals Tab PO SCH (10:35)
[2017-05-04] MEDS: Timolol 0.25% Ophth Soln 5 mL Bottle EACH EYE SCH (10:35)
--- NOTE | 2017-05-04 20:37 | Progress Notes ---
DATE: 05/04/2017 PSYCHIATRIC PROGRESS NOTE TIME PATIENT SEEN: 08:15 a.m. SUBJECTIVE: Staff was spoken to. The patient is interviewed. Mood is noted to be less irritable. Affect is appropriate. The patient is isolative and withdrawn. No major behavioral problems are noted today. The patient has been on the Lexapro 10 mg in the morning and has been able to tolerate the medication. No side effects to the medications are noted. The patient has been cooperative with the staff so far. No agitated behavior is noted today. ASSESSMENT: The patient's depression is resolving. The patient is cooperative. PLAN: To continue the patient with the supportive therapy and work with the hospice case manager with regard to returning the patient back to the facility. JOB# [id number]
== END 2017-05-04 12:05 | disposition home or self-care (01) | DRG 885 ==
LOC: ER 16:09 → GERO 18:30
PROVIDERS: ADMIT Psychiatry & Neurology Psychiatry; ATTEND Psychiatry & Neurology Psychiatry
DX: F29 Unspecified psychosis not due to a substance or known physiological condition (principal); F03.91 Unspecified dementia, unspecified severity, with behavioral disturbance; K74.60 Unspecified cirrhosis of liver; J44.9 Chronic obstructive pulmonary disease, unspecified; M19.90 Unspecified osteoarthritis, unspecified site; K59.00 Constipation, unspecified; I25.10 Atherosclerotic heart disease of native coronary artery without angina pectoris; R56.9 Unspecified convulsions; F32.9 Major depressive disorder, single episode, unspecified; Z83.3 Family history of diabetes mellitus; Z82.49 Family history of ischemic heart disease and other diseases of the circulatory system; Z87.891 Personal history of nicotine dependence
CPT/HCPCS: 36415-UA; 80053-TC; 84443-TC; 85025-TC; 93005; Z7610

== ENCOUNTER 2018-03-09 18:09 | Inpatient (IN) | payer MEDICARE, OTHER ==
--- NOTE | 2018-03-09 18:32 | ED Physician Chart ---
ED Chief Complaint/HPI - Patient Information Date Seen:: 03/09/18 Time Seen:: 18:10 Chief Complaint:: Agitation History of Present Illness:: onset x 3 days of agitation and aggressive behavior; no report of trauma, SIs, H /As, S/T, neck pain, cough, C/P, SOB, Abd. Pain, A/N/V/D/C, fever, chills, or urinary s/s Allergies:: Allergies Allergy/AdvReac Type Severity Reaction Status Date / Time No Known Allergies Allergy Verified 06/26/16 17:23 Historian:: Patient, EMS Review:: Nurse's Note Reviewed, Old Chart Reviewed, EMS run form Reviewed ED Review of Systems - Review of Systems General/Constitutional: No fever, No chills, No weight loss, No weakness, No diaphoresis, No edema, No loss of appetite Skin: No skin lesions, No rash, No bruising Head: No headache, No light-headedness Eyes: No loss of vision, No pain, No diplopia ENT: No earache, No nasal drainage, No sore throat, No tinnitus Neck: No neck pain, No swelling, No thyromegaly, No stiffness, No mass noted Cardio Vascular: No chest pain, No palpitations, No PND, No orthopnea, No edema Pulmonary: No SOB, No cough, No sputum, No wheezing GI: No nausea, No vomiting, No diarrhea, No pain, No melena, No hematochezia, No constipation, No hematemesis G/U: No dysuria, No frequency, No hematuria, No nacturia Musculoskeletal: No bone or joint pain, No back pain, No muscle pain Endocrine: No polyuria, No polydipsia Psychiatric: Prior psych history, No depression, Anxiety, No suicidal ideation, No homicidal ideation, Auditory hallucination, No visual hallucination Hematopoietic: No bruising, No lymphadenopathy Allergic/Immuno: No urticaria, No angioedema Neurological: No syncope, No focal symptoms, No weakness, No paresthesia, No headache, No seizure, No dizziness, No confusion, No vertigo ED Past Medical History - Past Medical History Obtainable: Yes Past Medical History: HTN, DM, Dyslipidemia, PUD/GERD, Dementia, Other (Colon CA ) Family History: Diabetes Melitus, HTN Social History: Non Smoker, No Alcohol, No Drug Use, Single, Care Facility Surgical History: other (Colostomy) Psychiatricy History: Schizophrenia, Dementia Medication: Reviewed Family Medical History - Family Member Mother History Unknown: Yes Ethnicity: Unknown Living Status: Unknown Hx Family Cancer: No Hx Family Coronary Artery Disease: No Hx Family Congestive Heart Failure: No Hx Family Hypertension: Yes Hx Family Stroke: No Hx Family Diabetes: Yes Hx Family Seizures: No Hx Family Dementia: No Hx Family AIDS: No Hx Family HIV: No Hx Family COPD: No Hx Family Hepatitis: Yes Hx Family Psychiatric Problems: No Hx Family Tuberculosis: No ED Physical Exam - Physical Examination General/Constitutional: Awake, Well-developed, well-nourished, Alert, No distress, GCS 15, Non-toxic appearing, Ambulatory Head: Atraumatic Eyes: Lids, conjuctiva normal, PERRL, EOMI Skin: Nl inspection, No rash, No skin lesions, No ecchymosis, Well hydrated, No lymphadenopathy ENMT: External ears, nose nl, TM canals nl, Nasal exam nl, Lips, teeth, gums nl , Oropharynx nl, Tonsils nl Neck: Nontender, Full ROM w/o pain, No JVD, No nuchal rigidity, No bruit, No mass, No stridor Respiratory: Nl effort/Exclusion, Clear to Auscultation, No Wheeze/Rhonchi/Rales Cardio Vascular: RRR, No murmur, gallop, rubs, NL S1 S2, Carotid/Femoral/Distal pulses equal bilaterally GI: No tenderness/rebounding/guarding, No organomegaly, No hernia, Normal BS's, Nondistended, No mass/bruits, No McBurney tenderness : No CVA tenderness Extremities: No tenderness or effusion, Full ROM, normal strength in all extremities, No edema, Normal digits & nails Neuro/Psych: Alert/oriented, DTR's symmetric, Normal sensory exam, Normal motor strength, Judgement/insight normal, Mood normal, Normal gait, No focal deficits Other Neuro/Psych comments:: + Psychomotor Agitation; no SIs; Mood/Affect: Labile Misc: Normal back, No paraspinal tenderness ED Labs/Radiology/EKG Results - Lab Results Comments:: unremarkable - EKG Interpretations Rate & Rhythm: NSR Comments:: non-specific st-t changes ED Septic Shock - . Is Septic Shock (SBP<90, OR Lactate>4 mmol\L) present?: No ED Reassessment (Disposition) - Reassessment Reassessment Condition:: Improved - Diagnosis Diagnosis:: Dx: Agitation; Psychosis; Medical Clearance; Bipolar Disorder - Aftercare/Follow up Instructions Aftercare/Follow-Up Instructions:: Counseled pt regarding lab results/diagnosis & need follow up, Counseled pt & family regarding lab results/diagnosis & need follow up - Patient Disposition Discharge/Transfer:: Acute Care w/in this hosp Admitted to:: [facility] Condition at Disposition:: Stable, Improved
[2018-03-09 19:03] LABS: % EOSINOPHILS 4.1 % (0.0-5.0); % LYMPHOCYTES 44.8 % (20.0-50.0); % NEUTROPHILS 40.1 % (40.0-80.0); EOSINOPHILE ABSOLUTE 0.3 Th/cmm (0.1-0.4); HEMATOCRIT 48.2 % (41.0-60); HEMOGLOBIN 16.4 gm/dL (12-16); LYMPHOCYTE ABSOLUTE 2.7 Th/cmm (1.5-3.0); MEAN CELL VOLUME 91.5 fl (80-99); MEAN CORPUSCULAR HEMOGLOBIN 31.1 pg (27.0-31.0); MEAN CORPUSCULAR HGB CONC 33.9 pg (28.0-36.0); MEAN PLATELET VOLUME 7.6 fl; MONOCYTE ABSOLUTE 0.7 Th/cmm (0.3-1.0); NEUTROPHILE ABSOLUTE 2.4 Th/cmm (1.8-8.0); PLATELET COUNT 188 Th/cmm (150-400); RED BLOOD COUNT 5.27 Mil/cmm (3.80-5.80); RED CELL DISTRIBUTION WIDTH 12.2 % (11.5-20.0); WHITE BLOOD COUNT 6.1 Th/cmm (4.8-10.8)
[2018-03-09 19:14] LABS: ALB/GLOB RATIO 1.1 (1.0-1.8); ALBUMIN 4.3 gm/dL (4.2-5.5); ALKALINE PHOSPHATASE 51 U/L (34-104); ANION GAP 11.1 (7.0-16.0); BILIRUBIN,TOTAL 0.5 mg/dL (0.3-1.0); BUN - UREA NITROGEN 19 mg/dL (7-25); CALCIUM SERUM 10.2 mg/dL (8.6-10.3); CARBON DIOXIDE 26.1 mEq/L (21.0-31.0); CHLORIDE 105 mEq/L (98-107); CHOLESTEROL 184 mg/dL (<200); CREATININE - SERUM 0.8 mg/dL (0.7-1.3); GLUCOSE 98 mg/dL (70-105); HDL -HIGH DENSITY LIPOPROTEIN 35 mg/dL (23-92); POTASSIUM SERUM 4.2 mEq/L (3.5-5.1); SGOT 27 U/L (13-39); SGPT/ALT 24 U/L (7-52); SODIUM SERUM 138 mEq/L (136-145); TOTAL PROTEIN,SERUM 8.2 gm/dL (6.0-8.3); TRIGLYCERIDES 259 mg/dL (<150)
[2018-03-09 19:15] LABS: ACETAMINOPHEN < 10.0 ug/mL (10.0-30.0); SALICYLATES (ASPIRIN) < 25.0 mg/L (30.0-100.0)
[2018-03-09 19:41] LABS: A1C % 4.9 % (4.0-6.0)
[2018-03-09] MEDS ORDERED: Maalox 30 mL Cup PO PRN (23:20)
[2018-03-09] MEDS ORDERED: Magnesium Hydroxide (MOM) 30 mL UDC PO PRN ×2 (23:20→23:27)
[2018-03-09] MEDS ORDERED: Non-Formulary Item 1 EA (Acetaminophen [Pain Reliever] 1 TAB) PO PRN (23:27)
[2018-03-09] MEDS ORDERED: Maalox 30 mL Cup PO SCH (23:30)
[2018-03-10] MEDS ORDERED: Maalox 30 mL Cup PO PRN (00:15)
[2018-03-10] MEDS ORDERED: Lactulose 10 Gm/15 mL 30mL UDC PO PRN (03:00)
[2018-03-10] MEDS: Multivitamin Tab PO SCH (08:30)
[2018-03-10] MEDS ORDERED: Non-Formulary Item 1 EA (Lactulose [Lactulose] 30 ML) PO SCH (09:00)
[2018-03-10] MEDS: Timolol 0.25% Ophth Soln 5 mL Bottle EACH EYE SCH (10:09)
--- NOTE | 2018-03-10 19:59 | History & Physical ---
ADMIT DATE: 03/09/2018 HISTORY OF PRESENT ILLNESS: The patient is a 77-year-old male with long history of hypertension, dementia, psychosis, admitted to [facility] under Dr. Morris's service for evaluation and treatment. Apparently, the patient has been very psychotic and agitated. No fever, no chills, no nausea, no vomiting. PAST MEDICAL HISTORY: Significant for hypertension, degenerative joint disease, dementia and psychosis. PAST SURGICAL HISTORY: No history of surgery. ALLERGIES: None. MEDICATIONS: Follow admission reconciliation. SOCIAL HISTORY: No smoking, no alcohol, no drug. FAMILY HISTORY: Noncontributory. REVIEW OF SYSTEMS: RENAL SYSTEM: No history of chronic renal disorder. CARDIOVASCULAR SYSTEM: No coronary artery disease. ENDOCRINE SYSTEM: No diabetes or thyroid problem. GASTROINTESTINAL SYSTEM: No upper or lower gastrointestinal bleed. NEUROLOGICAL SYSTEM: No seizure disorder. MUSCULOSKELETAL SYSTEM: Has degenerative joint disease. PHYSICAL EXAMINATION: GENERAL: He is awake, not fully oriented. VITAL SIGNS: His temperature is 98.5, heart rate 69, blood pressure 147/80. HEENT: Normocephalic. Pupils reactive to light and accommodation. Sclerae clear. NECK: Supple. Negative for lymphadenopathy, JVD or bruit. CHEST: Bilateral normal. No rhonchi or wheezing. HEART: S1, S2 normal, no gallop rhythm. ABDOMEN: Soft, bowel sounds positive. EXTREMITIES: No edema. BACK: No tenderness. SKIN: Intact. NEUROLOGIC: He is awake, alert, not fully oriented. No focal motor or sensory deficit. Cranial nerves 2-12 is intact. LABORATORY DATA: White blood 6.1, hemoglobin 16.4, hematocrit 48.2, platelets 188. Sodium 138, potassium 4.2, BUN 19, creatinine 0.8, triglyceride 259. ASSESSMENT: 1. Hypertension. 2. Hyperlipidemia. 3. Degenerative joint disease. 4. Dementia. 5. Psychosis. PLAN: The patient admitted to the hospital under Dr. Morris's service. Medical problem to address during hospitalization is psychosis. Medical problems to address at discharge are hyperlipidemia, hypertension. The patient is medically stable for activity. Thank you, Dr. Morris for asking me to see your patient. JOB# [id number]
--- NOTE | 2018-03-11 01:46 | Psychosocial Evaluation ---
DATE OF SERVICE: 03/10/2018 PSYCHIATRIC EVALUATION IDENTIFYING DATA: The patient is a 77-year-old -[place] male resident of a long term facility. Information obtained by directly interviewing the patient as well as reviewing the admission papers and they are reliable. JUSTIFICATION OF HOSPITALIZATION: The patient is admitted on a voluntary basis after he has been transferred over here from the long term facility. As per the information obtained, the patient has been getting easily agitated and has been screaming and yelling and has been getting verbally abusive towards the staff members. The patient is reported to have been angry and upset and at the same time, depressed with regard to his medical problems. The patient is reported to have been very resistive at the time of the admission. PAST PSYCHIATRIC HISTORY: The patient had been hospitalized under my care in the past. MEDICAL HISTORY AND PHYSICAL EXAMINATION: Requested to be done by Dr. Espino. SUBSTANCE ABUSE HISTORY: None. PHYSICAL OR SEXUAL ABUSE HISTORY: None. LEGAL PROBLEMS: None at this time. MENTAL STATUS EXAMINATION: The patient is a 77-year-old, looking his stated age, superficially cooperative. Eye contact is fair. Mood is irritable. Affect is constricted. Insight and judgment at this time are noted to be impaired. Impulse control is noted to be poor. The patient is getting easily agitated. The patient has been having difficult time to cope with the stress. The patient is alert and aware that he is in the hospital. The patient has paranoia, but denies any command hallucinations. The patient has been having difficult time to cope with the stress. DIAGNOSTIC IMPRESSION: 1. Major depressive disorder, recurrent and moderate. 1B. Dementia and behavioral change, secondary trait. IMMEDIATE TREATMENT PLAN: The patient is going to be observed on the inpatient unit, provided with supportive psychotherapy. The patient is going to be encouraged to participate in the groups and verbalize the concerns. Once stabilized, the patient is going to be discharged to [facility] to be followed up on an outpatient basis. JOB# [id number]
--- NOTE | 2018-03-11 08:46 | Progress Notes ---
DATE: 03/11/2018 SUBJECTIVE: Staff was spoken to. The patient is interviewed. Mood is noted to be irritable. Affect is constricted. Insight and judgment at this time are noted to be still impaired. Impulse control is noted to be limited. The patient tends to scream and yell when he does not get his way. The patient is currently on escitalopram 10 mg in the morning and quetiapine has been started at 12.5 mg at bedtime. The patient has been able to tolerate. No side effects to medications are noted at this time. ASSESSMENT: The patient is still impulsive and depressed. PLAN: To continue the patient with supportive therapy and followup. JOB# [id number]
[2018-03-11] MEDS: Timolol 0.25% Ophth Soln 5 mL Bottle EACH EYE SCH (08:48)
[2018-03-11] MEDS: Multivitamin Tab PO SCH (08:48)
--- NOTE | 2018-03-11 14:40 | Internal Medicine Prog Note ---
Internal Medicine Subjective - Subjective Service Date: 03/11/18 Patient is:: awake, non-verbal, in bed, confused Per staff patient has:: no adverse event Internal Medicine Objective - Results Result Diagrams: 03/09/18 18:51 03/09/18 18:51 Recent Labs: Laboratory Last Values WBC 6.1 Th/cmm (4.8-10.8) 03/09/18 18:51 RBC 5.27 Mil/cmm (3.80-5.80) 03/09/18 18:51 Hgb 16.4 gm/dL (12-16) 03/09/18 18:51 Hct 48.2 % (41.0-60) 03/09/18 18:51 MCV 91.5 fl (80-99) 03/09/18 18:51 MCH 31.1 pg (27.0-31.0) H 03/09/18 18:51 MCHC Differential 33.9 pg (28.0-36.0) 03/09/18 18:51 RDW 12.2 % (11.5-20.0) 03/09/18 18:51 Plt Count 188 Th/cmm (150-400) 03/09/18 18:51 MPV 7.6 fl 03/09/18 18:51 Neutrophils % 40.1 % (40.0-80.0) 03/09/18 18:51 Lymphocytes % 44.8 % (20.0-50.0) 03/09/18 18:51 Monocytes % 11.0 % (2.0-10.0) H 03/09/18 18:51 Eosinophils % 4.1 % (0.0-5.0) 03/09/18 18:51 Basophils % 0.0 % (0.0-2.0) 03/09/18 18:51 Sodium 138 mEq/L (136-145) 03/09/18 18:51 Potassium 4.2 mEq/L (3.5-5.1) 03/09/18 18:51 Chloride 105 mEq/L (98-107) 03/09/18 18:51 Carbon Dioxide 26.1 mEq/L (21.0-31.0) 03/09/18 18:51 Anion Gap 11.1 (7.0-16.0) 03/09/18 18:51 BUN 19 mg/dL (7-25) 03/09/18 18:51 Creatinine 0.8 mg/dL (0.7-1.3) 03/09/18 18:51 Est GFR ( Amer) TNP 03/09/18 18:51 Est GFR (Non-Af Amer) TNP 03/09/18 18:51 BUN/Creatinine Ratio 23.8 03/09/18 18:51 Glucose 98 mg/dL (70-105) 03/09/18 18:51 Hemoglobin A1c % 4.9 % (4.0-6.0) 03/09/18 18:51 Calcium 10.2 mg/dL (8.6-10.3) 03/09/18 18:51 Total Bilirubin 0.5 mg/dL (0.3-1.0) 03/09/18 18:51 AST 27 U/L (13-39) 03/09/18 18:51 ALT 24 U/L (7-52) 03/09/18 18:51 Alkaline Phosphatase 51 U/L (34-104) 03/09/18 18:51 Troponin I 0.01 ng/mL (0.01-0.05) 03/09/18 18:51 Total Protein 8.2 gm/dL (6.0-8.3) 03/09/18 18:51 Albumin 4.3 gm/dL (4.2-5.5) 03/09/18 18:51 Globulin 3.9 gm/dL 03/09/18 18:51 Albumin/Globulin Ratio 1.1 (1.0-1.8) 03/09/18 18:51 Triglycerides 259 mg/dL (<150) H 03/09/18 18:51 Cholesterol 184 mg/dL (<200) 03/09/18 18:51 LDL Cholesterol Direct 109 mg/dL (75-193) 03/09/18 18:51 HDL Cholesterol 35 mg/dL (23-92) 03/09/18 18:51 TSH 0.59 uIU/ml (0.34-5.60) 03/09/18 18:51 Salicylates < 25.0 mg/L (30.0-100.0) L 03/09/18 18:51 Acetaminophen < 10.0 ug/mL (10.0-30.0) L 03/09/18 18:51 Ethyl Alcohol < 10 mg/dL (0-10) 03/09/18 18:51 RPR NONREACTIVE (NONREACTIVE) 03/09/18 18:51 - Physical Exam Vitals and I&O: Vital Signs Temp 98.0 F 03/11/18 04:49 Pulse 78 03/11/18 04:49 Resp 18 03/11/18 04:49 BP 110/69 03/11/18 04:49 Pulse Ox 90 03/11/18 04:49 Intake & Output 03/10/18 03/11/18 03/11/18 18:59 06:59 18:59 Intake Total 420 480 Balance 420 480 Intake: Oral 420 480 Other: # Voids 1 2 Stool Characteristics Brown Active Medications: Current Medications Acetaminophen (Tylenol) 650 mg PO Q4HR PRN PRN Reason: Mild Pain / Temp above 100 Stop: 05/08/18 23:19 Al Hydrox/Mg Hydrox/Simethicone (Maalox) 30 ml PO Q4H PRN PRN Reason: GI DISTRESS Stop: 05/08/18 23:29 Escitalopram Oxalate (Lexapro) 10 mg PO DAILY LAURYN; Protocol Stop: 05/09/18 08:59 Last Admin: 03/11/18 08:48 Dose: 10 mg Galantamine Hydrobromide (Razadyne) 8 mg PO BID LAURYN Stop: 05/09/18 08:59 Last Admin: 03/11/18 08:48 Dose: 8 mg Lactulose (Cephulac) 20 gm PO BID PRN PRN Reason: Constipation Stop: 05/09/18 02:59 Latanoprost (Xalatan 0.005% Oph Soln) 1 drop EACH EYE HS LAURYN Stop: 05/09/18 20:59 Last Admin: 03/10/18 22:15 Dose: 1 drop Lorazepam (Ativan) 0.5 mg PO Q4HR PRN; Protocol PRN Reason: Anxiety Stop: 04/08/18 23:19 Magnesium Hydroxide (Milk Of Magnesia) 30 ml PO DAILY PRN PRN Reason: GI DISTRESS Stop: 05/08/18 23:26 Multivitamins/Vitamin C (Theragran) 1 tab PO DAILY LAURYN Stop: 05/09/18 08:59 Last Admin: 03/11/18 08:48 Dose: 1 tab Quetiapine Fumarate (Seroquel) 12.5 mg PO HS LAURYN; Protocol Stop: 05/09/18 20:59 Last Admin: 03/10/18 22:14 Dose: 12.5 mg Timolol Maleate (Timoptic 0.25% Ophth Soln) 1 drop EACH EYE DAILY LAURYN Stop: 05/09/18 08:59 Last Admin: 03/11/18 08:48 Dose: 1 drop Zolpidem Tartrate (Ambien) 5 mg PO HS PRN PRN Reason: Insomnia Stop: 05/08/18 23:19 General: weak, demented HEENT: NC/AT, PERRLA, EOMI, anicteric sclerae, throat clear Neck: Supple, No JVD, No thyromegaly, +2 carotid pulse wo bruit, No LAD Lungs: CTAB Cardiovascular: Normal S1, Normal S2, without murmur Abdomen: soft, non-tender, non-distended Extremities: clear Neurological: no change - Procedures Procedures: Procedures Procedure Code Date EMERGENCY DEPT VISIT 58282 12/02/11 GROUP PSYCHOTHERAPY 86446 10/13/12 OTHER GROUP THERAPY 94.44 09/05/14 Internal Medicine Assmt/Plan - Assessment Assessment: 1.HTN. 2.HYPERLIPIDEMIA. 3.DJD. 4.DEMENTIA. - Plan Plan: CONTINUE ON CURRENT MEDICATION AND DIET.
[2018-03-12] MEDS: Multivitamin Tab PO SCH (09:28)
[2018-03-12] MEDS: Timolol 0.25% Ophth Soln 5 mL Bottle EACH EYE SCH (09:29)
--- NOTE | 2018-03-12 11:18 | Consultation ---
DATE OF CONSULTATION: 03/11/2018 REFERRING PHYSICIAN: Joao Morris MD TYPE OF CONSULTATION: Psychology. HISTORY OF PRESENT ILLNESS: The patient is a 77-year-old -[place] male. 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 The following is by record review and by the patient's self-report. The patient is admitted due to increased agitation as well as yelling episodes and verbal abuse towards staff at his facility. Upon interview, the patient is easily upset. The patient admits that he is depressed. The patient has been resisting care on the unit according to staff. The patient denied any suicidal ideation, plan or intention. PAST MEDICAL HISTORY: Please see history and physical by Dr. Espino. PAST PSYCHIATRIC HISTORY: The patient has history of dementia with behavioral disturbance. The patient is under the care of a psychiatrist at his custodial facility. SUBSTANCE ABUSE HISTORY: The patient denies any history. PSYCHOSOCIAL HISTORY: The patient did not answer questions about occupational or educational history or latter-day affiliation. The patient denied any history of physical or sexual abuse. The patient reports no current legal problems. MENTAL STATUS EXAMINATION: The patient appears to be his stated age. The patient's attitude is guarded, but cooperative at times. Eye contact is fair to poor. Speech is loud. Mood is irritable. Affect is constricted. Thought process shows to be confused and perseveration on the reason for hospitalization. The patient denied any auditory or visual hallucinations. The patient denies any suicidal ideation, plan or intention. There is evidence of paranoid ideation. The patient's behavior has been difficult to redirect on the unit. The patient can be verbally abusive at times. Impulse control is inadequate. Concentration is poor. Sensorium is alert and oriented to self and place. The patient did not participate in the memory assessment. The patient did not participate in the interpretation of proverbs. Insight is poor. Judgment is impaired. DIAGNOSTIC IMPRESSION: AXIS I: 1. Major depressive disorder, recurrent, moderate. 2. History of dementia with behavioral disturbance. AXIS II: Deferred. AXIS III: Please see H and P by Dr. Espino. TREATMENT PLAN: The patient has been seen by Dr. Morris for psychiatric evaluation and for the management of the patient's psychotropic medications. We will provide supportive psychotherapy to include limit setting as well as de-escalation to assist the patient in emotional and self-regulation. We will encourage the patient to demonstrate this prior to discharge. We will provide coping strategies for phase of life issues. We will continue to provide motivational enhancement for the patient to become compliant and stay compliant with all aspects of his care and treatment plan during his hospital stay. Thank you, Dr. Morris for this consult and the opportunity to participate in this patient's care. [facility]# [id number] IVET
--- NOTE | 2018-03-12 19:02 | Progress Notes ---
DATE: 03/12/2018 SUBJECTIVE: Staff was spoken to. The patient is interviewed. Mood is noted to be irritable. Affect is constricted. Coping skills are noted to be poor. The patient is getting easily dysphoric and has been getting easily angry and upset. No side effects to the medications are noted at this time. ASSESSMENT: The patient is still impulsive. PLAN: To continue the patient with the supportive therapy and encourage the patient to verbalize the concerns rather than to act out. JOB# [id number]
--- NOTE | 2018-03-12 23:19 | General Progress Note ---
Subjective - Review of Systems Service Date: 03/12/18 Subjective: resting comfortably no distress Objective - Results Result Diagrams: 03/09/18 18:51 03/09/18 18:51 Recent Labs: Laboratory Last Values WBC 6.1 Th/cmm (4.8-10.8) 03/09/18 18:51 RBC 5.27 Mil/cmm (3.80-5.80) 03/09/18 18:51 Hgb 16.4 gm/dL (12-16) 03/09/18 18:51 Hct 48.2 % (41.0-60) 03/09/18 18:51 MCV 91.5 fl (80-99) 03/09/18 18:51 MCH 31.1 pg (27.0-31.0) H 03/09/18 18:51 MCHC Differential 33.9 pg (28.0-36.0) 03/09/18 18:51 RDW 12.2 % (11.5-20.0) 03/09/18 18:51 Plt Count 188 Th/cmm (150-400) 03/09/18 18:51 MPV 7.6 fl 03/09/18 18:51 Neutrophils % 40.1 % (40.0-80.0) 03/09/18 18:51 Lymphocytes % 44.8 % (20.0-50.0) 03/09/18 18:51 Monocytes % 11.0 % (2.0-10.0) H 03/09/18 18:51 Eosinophils % 4.1 % (0.0-5.0) 03/09/18 18:51 Basophils % 0.0 % (0.0-2.0) 03/09/18 18:51 Sodium 138 mEq/L (136-145) 03/09/18 18:51 Potassium 4.2 mEq/L (3.5-5.1) 03/09/18 18:51 Chloride 105 mEq/L (98-107) 03/09/18 18:51 Carbon Dioxide 26.1 mEq/L (21.0-31.0) 03/09/18 18:51 Anion Gap 11.1 (7.0-16.0) 03/09/18 18:51 BUN 19 mg/dL (7-25) 03/09/18 18:51 Creatinine 0.8 mg/dL (0.7-1.3) 03/09/18 18:51 Est GFR ( Amer) TNP 03/09/18 18:51 Est GFR (Non-Af Amer) TNP 03/09/18 18:51 BUN/Creatinine Ratio 23.8 03/09/18 18:51 Glucose 98 mg/dL (70-105) 03/09/18 18:51 Hemoglobin A1c % 4.9 % (4.0-6.0) 03/09/18 18:51 Calcium 10.2 mg/dL (8.6-10.3) 03/09/18 18:51 Total Bilirubin 0.5 mg/dL (0.3-1.0) 03/09/18 18:51 AST 27 U/L (13-39) 03/09/18 18:51 ALT 24 U/L (7-52) 03/09/18 18:51 Alkaline Phosphatase 51 U/L (34-104) 03/09/18 18:51 Troponin I 0.01 ng/mL (0.01-0.05) 03/09/18 18:51 Total Protein 8.2 gm/dL (6.0-8.3) 03/09/18 18:51 Albumin 4.3 gm/dL (4.2-5.5) 03/09/18 18:51 Globulin 3.9 gm/dL 03/09/18 18:51 Albumin/Globulin Ratio 1.1 (1.0-1.8) 03/09/18 18:51 Triglycerides 259 mg/dL (<150) H 03/09/18 18:51 Cholesterol 184 mg/dL (<200) 03/09/18 18:51 LDL Cholesterol Direct 109 mg/dL (75-193) 03/09/18 18:51 HDL Cholesterol 35 mg/dL (23-92) 03/09/18 18:51 TSH 0.59 uIU/ml (0.34-5.60) 03/09/18 18:51 Salicylates < 25.0 mg/L (30.0-100.0) L 03/09/18 18:51 Acetaminophen < 10.0 ug/mL (10.0-30.0) L 03/09/18 18:51 Ethyl Alcohol < 10 mg/dL (0-10) 03/09/18 18:51 RPR NONREACTIVE (NONREACTIVE) 03/09/18 18:51 - Physical Exam Vitals and I&O: Vital Signs Temp 99.4 F 03/12/18 20:00 Pulse 66 03/12/18 20:00 Resp 18 03/12/18 20:00 BP 138/70 03/12/18 20:00 Pulse Ox 96 03/12/18 20:00 Intake & Output 03/12/18 03/12/18 03/13/18 06:59 18:59 06:59 Intake Total 480 420 Balance 480 420 Intake: Oral 480 420 Other: # Voids 2 1 Active Medications: Current Medications Acetaminophen (Tylenol) 650 mg PO Q4HR PRN PRN Reason: Mild Pain / Temp above 100 Stop: 05/08/18 23:19 Al Hydrox/Mg Hydrox/Simethicone (Maalox) 30 ml PO Q4H PRN PRN Reason: GI DISTRESS Stop: 05/08/18 23:29 Escitalopram Oxalate (Lexapro) 10 mg PO DAILY LAURYN; Protocol Stop: 05/09/18 08:59 Last Admin: 03/12/18 09:29 Dose: 10 mg Galantamine Hydrobromide (Razadyne) 8 mg PO BID LAURYN Stop: 05/09/18 08:59 Last Admin: 03/12/18 17:06 Dose: 8 mg Lactulose (Cephulac) 20 gm PO BID PRN PRN Reason: Constipation Stop: 05/09/18 02:59 Latanoprost (Xalatan 0.005% Ophth Soln) 1 drop EACH EYE HS LAURYN Stop: 05/09/18 20:59 Last Admin: 03/12/18 21:12 Dose: 1 drop Lorazepam (Ativan) 0.5 mg PO Q4HR PRN; Protocol PRN Reason: Anxiety Stop: 04/08/18 23:19 Last Admin: 03/12/18 21:11 Dose: 0.5 mg Magnesium Hydroxide (Milk Of Magnesia) 30 ml PO DAILY PRN PRN Reason: GI DISTRESS Stop: 05/08/18 23:26 Multivitamins/Vitamin C (Theragran) 1 tab PO DAILY LAURYN Stop: 05/09/18 08:59 Last Admin: 03/12/18 09:28 Dose: 1 tab Quetiapine Fumarate (Seroquel) 12.5 mg PO HS LAURYN; Protocol Stop: 05/09/18 20:59 Last Admin: 03/12/18 21:11 Dose: 12.5 mg Timolol Maleate (Timoptic 0.25% Ophth Soln) 1 drop EACH EYE DAILY LAURYN Stop: 05/09/18 08:59 Last Admin: 03/12/18 09:29 Dose: 1 drop Zolpidem Tartrate (Ambien) 5 mg PO HS PRN PRN Reason: Insomnia Stop: 05/08/18 23:19 Last Admin: 03/12/18 21:11 Dose: 5 mg General: No acute distress HEENT: Atraumatic Neck: Supple, JVD Cardiovascular: Regular rate, Normal S1, Normal S2 Lungs: Clear to auscultation, Normal air movement Abdomen: Bowel sounds, Soft - Procedures Procedures: Procedures Procedure Code Date EMERGENCY DEPT VISIT 65873 12/02/11 GROUP PSYCHOTHERAPY 18548 10/13/12 OTHER GROUP THERAPY 94.44 09/05/14 Assessment/Plan - Assessment Assessment: 1.HTN. 2.HYPERLIPIDEMIA. 3.DJD. 4.DEMENTIA. - Plan Plan: cont current treatment
[2018-03-13] MEDS: Multivitamin Tab PO SCH (10:07)
[2018-03-13] MEDS: Timolol 0.25% Ophth Soln 5 mL Bottle EACH EYE SCH (10:08)
--- NOTE | 2018-03-13 15:25 | General Progress Note ---
Subjective - Review of Systems Service Date: 03/13/18 Subjective: resting comfortably no distress Objective - Results Result Diagrams: 03/09/18 18:51 03/09/18 18:51 Recent Labs: Laboratory Last Values WBC 6.1 Th/cmm (4.8-10.8) 03/09/18 18:51 RBC 5.27 Mil/cmm (3.80-5.80) 03/09/18 18:51 Hgb 16.4 gm/dL (12-16) 03/09/18 18:51 Hct 48.2 % (41.0-60) 03/09/18 18:51 MCV 91.5 fl (80-99) 03/09/18 18:51 MCH 31.1 pg (27.0-31.0) H 03/09/18 18:51 MCHC Differential 33.9 pg (28.0-36.0) 03/09/18 18:51 RDW 12.2 % (11.5-20.0) 03/09/18 18:51 Plt Count 188 Th/cmm (150-400) 03/09/18 18:51 MPV 7.6 fl 03/09/18 18:51 Neutrophils % 40.1 % (40.0-80.0) 03/09/18 18:51 Lymphocytes % 44.8 % (20.0-50.0) 03/09/18 18:51 Monocytes % 11.0 % (2.0-10.0) H 03/09/18 18:51 Eosinophils % 4.1 % (0.0-5.0) 03/09/18 18:51 Basophils % 0.0 % (0.0-2.0) 03/09/18 18:51 Sodium 138 mEq/L (136-145) 03/09/18 18:51 Potassium 4.2 mEq/L (3.5-5.1) 03/09/18 18:51 Chloride 105 mEq/L (98-107) 03/09/18 18:51 Carbon Dioxide 26.1 mEq/L (21.0-31.0) 03/09/18 18:51 Anion Gap 11.1 (7.0-16.0) 03/09/18 18:51 BUN 19 mg/dL (7-25) 03/09/18 18:51 Creatinine 0.8 mg/dL (0.7-1.3) 03/09/18 18:51 Est GFR ( Amer) TNP 03/09/18 18:51 Est GFR (Non-Af Amer) TNP 03/09/18 18:51 BUN/Creatinine Ratio 23.8 03/09/18 18:51 Glucose 98 mg/dL (70-105) 03/09/18 18:51 Hemoglobin A1c % 4.9 % (4.0-6.0) 03/09/18 18:51 Calcium 10.2 mg/dL (8.6-10.3) 03/09/18 18:51 Total Bilirubin 0.5 mg/dL (0.3-1.0) 03/09/18 18:51 AST 27 U/L (13-39) 03/09/18 18:51 ALT 24 U/L (7-52) 03/09/18 18:51 Alkaline Phosphatase 51 U/L (34-104) 03/09/18 18:51 Troponin I 0.01 ng/mL (0.01-0.05) 03/09/18 18:51 Total Protein 8.2 gm/dL (6.0-8.3) 03/09/18 18:51 Albumin 4.3 gm/dL (4.2-5.5) 03/09/18 18:51 Globulin 3.9 gm/dL 03/09/18 18:51 Albumin/Globulin Ratio 1.1 (1.0-1.8) 03/09/18 18:51 Triglycerides 259 mg/dL (<150) H 03/09/18 18:51 Cholesterol 184 mg/dL (<200) 03/09/18 18:51 LDL Cholesterol Direct 109 mg/dL (75-193) 03/09/18 18:51 HDL Cholesterol 35 mg/dL (23-92) 03/09/18 18:51 TSH 0.59 uIU/ml (0.34-5.60) 03/09/18 18:51 Salicylates < 25.0 mg/L (30.0-100.0) L 03/09/18 18:51 Acetaminophen < 10.0 ug/mL (10.0-30.0) L 03/09/18 18:51 Ethyl Alcohol < 10 mg/dL (0-10) 03/09/18 18:51 RPR NONREACTIVE (NONREACTIVE) 03/09/18 18:51 - Physical Exam Vitals and I&O: Vital Signs Temp 98.5 F 03/13/18 14:43 Pulse 82 03/13/18 14:43 Resp 20 03/13/18 14:43 BP 135/76 03/13/18 14:43 Pulse Ox 97 03/13/18 14:43 Intake & Output 03/12/18 03/13/18 03/13/18 18:59 06:59 18:59 Intake Total 420 320 Balance 420 320 Intake: Oral 420 320 Other: # Voids 1 2 Stool Characteristics Liquid Liquid Brown Brown Active Medications: Current Medications Acetaminophen (Tylenol) 650 mg PO Q4HR PRN PRN Reason: Mild Pain / Temp above 100 Stop: 05/08/18 23:19 Al Hydrox/Mg Hydrox/Simethicone (Maalox) 30 ml PO Q4H PRN PRN Reason: GI DISTRESS Stop: 05/08/18 23:29 Escitalopram Oxalate (Lexapro) 10 mg PO DAILY LAURYN; Protocol Stop: 05/09/18 08:59 Last Admin: 03/13/18 10:07 Dose: 10 mg Galantamine Hydrobromide (Razadyne) 8 mg PO BID LAURYN Stop: 05/09/18 08:59 Last Admin: 03/13/18 10:07 Dose: 8 mg Lactulose (Cephulac) 20 gm PO BID PRN PRN Reason: Constipation Stop: 05/09/18 02:59 Latanoprost (Xalatan 0.005% Ophth Soln) 1 drop EACH EYE HS LAURYN Stop: 05/09/18 20:59 Last Admin: 03/12/18 21:12 Dose: 1 drop Lorazepam (Ativan) 0.5 mg PO Q4HR PRN; Protocol PRN Reason: Anxiety Stop: 04/08/18 23:19 Last Admin: 03/13/18 10:07 Dose: 0.5 mg Magnesium Hydroxide (Milk Of Magnesia) 30 ml PO DAILY PRN PRN Reason: GI DISTRESS Stop: 05/08/18 23:26 Multivitamins/Vitamin C (Theragran) 1 tab PO DAILY LAURYN Stop: 05/09/18 08:59 Last Admin: 03/13/18 10:07 Dose: 1 tab Quetiapine Fumarate (Seroquel) 25 mg PO HS LAURYN; Protocol Stop: 05/12/18 20:59 Timolol Maleate (Timoptic 0.25% Ophth Soln) 1 drop EACH EYE DAILY LAURYN Stop: 05/09/18 08:59 Last Admin: 03/13/18 10:08 Dose: 1 drop Zolpidem Tartrate (Ambien) 5 mg PO HS PRN PRN Reason: Insomnia Stop: 05/08/18 23:19 Last Admin: 03/12/18 21:11 Dose: 5 mg General: No acute distress HEENT: Atraumatic Neck: Supple, JVD Cardiovascular: Regular rate, Normal S1, Normal S2 Lungs: Clear to auscultation, Normal air movement Abdomen: Bowel sounds, Soft - Procedures Procedures: Procedures Procedure Code Date EMERGENCY DEPT VISIT 93677 12/02/11 GROUP PSYCHOTHERAPY 80750 10/13/12 OTHER GROUP THERAPY 94.44 09/05/14 Assessment/Plan - Assessment Assessment: 1.HTN. 2.HYPERLIPIDEMIA. 3.DJD. 4.DEMENTIA. - Plan Plan: cont current treatment
--- NOTE | 2018-03-13 15:40 | Progress Notes ---
DATE: 03/13/2018 PSYCHIATRIC PROGRESS NOTE Staff was spoken to. The patient is interviewed. Mood is noted to be irritable. Affect is constricted. The patient is isolative and withdrawn. Insight and judgment noted to be still impaired. Impulse control seems to be limited. No side effects to medications are noted. The patient is being closely monitored at this time. The patient has been frustrated with these medical issues, such as the colostomy and taking care of it. The patient is currently on Seroquel only 12.5 mg. I am planning to increase it to 25 mg tonight and the patient is going to be closely monitored with the change in medication and the patient is going to be redirected. The patient is also receiving escitalopram 10 mg and has been able to tolerate the medication. ASSESSMENT: The patient is still depressed and impulsive. PLAN: To continue the patient with supportive therapy and followup. JOB# [id number]
[2018-03-14] MEDS: Multivitamin Tab PO SCH (09:39)
[2018-03-14] MEDS: Timolol 0.25% Ophth Soln 5 mL Bottle EACH EYE SCH (09:39)
--- NOTE | 2018-03-14 17:36 | Internal Medicine Prog Note ---
Internal Medicine Subjective - Subjective Service Date: 03/14/18 Patient seen and examined:: with staff Patient is:: awake, non-verbal, in bed, confused Per staff patient has:: no adverse event Internal Medicine Objective - Results Result Diagrams: 03/09/18 18:51 03/09/18 18:51 Recent Labs: Laboratory Last Values WBC 6.1 Th/cmm (4.8-10.8) 03/09/18 18:51 RBC 5.27 Mil/cmm (3.80-5.80) 03/09/18 18:51 Hgb 16.4 gm/dL (12-16) 03/09/18 18:51 Hct 48.2 % (41.0-60) 03/09/18 18:51 MCV 91.5 fl (80-99) 03/09/18 18:51 MCH 31.1 pg (27.0-31.0) H 03/09/18 18:51 MCHC Differential 33.9 pg (28.0-36.0) 03/09/18 18:51 RDW 12.2 % (11.5-20.0) 03/09/18 18:51 Plt Count 188 Th/cmm (150-400) 03/09/18 18:51 MPV 7.6 fl 03/09/18 18:51 Neutrophils % 40.1 % (40.0-80.0) 03/09/18 18:51 Lymphocytes % 44.8 % (20.0-50.0) 03/09/18 18:51 Monocytes % 11.0 % (2.0-10.0) H 03/09/18 18:51 Eosinophils % 4.1 % (0.0-5.0) 03/09/18 18:51 Basophils % 0.0 % (0.0-2.0) 03/09/18 18:51 Sodium 138 mEq/L (136-145) 03/09/18 18:51 Potassium 4.2 mEq/L (3.5-5.1) 03/09/18 18:51 Chloride 105 mEq/L (98-107) 03/09/18 18:51 Carbon Dioxide 26.1 mEq/L (21.0-31.0) 03/09/18 18:51 Anion Gap 11.1 (7.0-16.0) 03/09/18 18:51 BUN 19 mg/dL (7-25) 03/09/18 18:51 Creatinine 0.8 mg/dL (0.7-1.3) 03/09/18 18:51 Est GFR ( Amer) TNP 03/09/18 18:51 Est GFR (Non-Af Amer) TNP 03/09/18 18:51 BUN/Creatinine Ratio 23.8 03/09/18 18:51 Glucose 98 mg/dL (70-105) 03/09/18 18:51 Hemoglobin A1c % 4.9 % (4.0-6.0) 03/09/18 18:51 Calcium 10.2 mg/dL (8.6-10.3) 03/09/18 18:51 Total Bilirubin 0.5 mg/dL (0.3-1.0) 03/09/18 18:51 AST 27 U/L (13-39) 03/09/18 18:51 ALT 24 U/L (7-52) 03/09/18 18:51 Alkaline Phosphatase 51 U/L (34-104) 03/09/18 18:51 Troponin I 0.01 ng/mL (0.01-0.05) 03/09/18 18:51 Total Protein 8.2 gm/dL (6.0-8.3) 03/09/18 18:51 Albumin 4.3 gm/dL (4.2-5.5) 03/09/18 18:51 Globulin 3.9 gm/dL 03/09/18 18:51 Albumin/Globulin Ratio 1.1 (1.0-1.8) 03/09/18 18:51 Triglycerides 259 mg/dL (<150) H 03/09/18 18:51 Cholesterol 184 mg/dL (<200) 03/09/18 18:51 LDL Cholesterol Direct 109 mg/dL (75-193) 03/09/18 18:51 HDL Cholesterol 35 mg/dL (23-92) 03/09/18 18:51 TSH 0.59 uIU/ml (0.34-5.60) 03/09/18 18:51 Salicylates < 25.0 mg/L (30.0-100.0) L 03/09/18 18:51 Acetaminophen < 10.0 ug/mL (10.0-30.0) L 03/09/18 18:51 Ethyl Alcohol < 10 mg/dL (0-10) 03/09/18 18:51 RPR NONREACTIVE (NONREACTIVE) 03/09/18 18:51 - Physical Exam Vitals and I&O: Vital Signs Temp 98.9 F 03/14/18 14:39 Pulse 70 03/14/18 14:39 Resp 18 03/14/18 14:39 BP 124/62 03/14/18 14:39 Pulse Ox 96 03/14/18 14:39 Intake & Output 03/13/18 03/14/18 03/14/18 18:59 06:59 18:59 Intake Total 1220 560 Balance 1220 560 Intake: Oral 1220 560 Other: # Voids 3 2 Stool Characteristics Liquid Soft Liquid Brown Brown Brown Active Medications: Current Medications Acetaminophen (Tylenol) 650 mg PO Q4HR PRN PRN Reason: Mild Pain / Temp above 100 Stop: 05/08/18 23:19 Al Hydrox/Mg Hydrox/Simethicone (Maalox) 30 ml PO Q4H PRN PRN Reason: GI DISTRESS Stop: 05/08/18 23:29 Escitalopram Oxalate (Lexapro) 10 mg PO DAILY LAURYN; Protocol Stop: 05/09/18 08:59 Last Admin: 03/14/18 09:39 Dose: 10 mg Galantamine Hydrobromide (Razadyne) 8 mg PO BID LAURYN Stop: 05/09/18 08:59 Last Admin: 03/14/18 16:54 Dose: 8 mg Lactulose (Cephulac) 20 gm PO BID PRN PRN Reason: Constipation Stop: 05/09/18 02:59 Latanoprost (Xalatan 0.005% Oph Soln) 1 drop EACH EYE HS LAURYN Stop: 05/09/18 20:59 Last Admin: 03/13/18 21:17 Dose: 1 drop Lorazepam (Ativan) 0.5 mg PO Q4HR PRN; Protocol PRN Reason: Anxiety Stop: 04/08/18 23:19 Last Admin: 03/13/18 10:07 Dose: 0.5 mg Magnesium Hydroxide (Milk Of Magnesia) 30 ml PO DAILY PRN PRN Reason: GI DISTRESS Stop: 05/08/18 23:26 Multivitamins/Vitamin C (Theragran) 1 tab PO DAILY LAURYN Stop: 05/09/18 08:59 Last Admin: 03/14/18 09:39 Dose: 1 tab Quetiapine Fumarate (Seroquel) 25 mg PO HS LAURYN; Protocol Stop: 05/12/18 20:59 Last Admin: 03/13/18 21:17 Dose: 25 mg Timolol Maleate (Timoptic 0.25% Ophth Soln) 1 drop EACH EYE DAILY LAURYN Stop: 05/09/18 08:59 Last Admin: 03/14/18 09:39 Dose: 1 drop Zolpidem Tartrate (Ambien) 5 mg PO HS PRN PRN Reason: Insomnia Stop: 05/08/18 23:19 Last Admin: 03/13/18 21:18 Dose: 5 mg General: weak, demented HEENT: NC/AT, PERRLA, EOMI, anicteric sclerae, throat clear Neck: Supple, No JVD, No thyromegaly, +2 carotid pulse wo bruit, No LAD Lungs: CTAB Cardiovascular: Normal S1, Normal S2, without murmur Abdomen: soft, non-tender, non-distended Extremities: clear Neurological: no change - Procedures Procedures: Procedures Procedure Code Date EMERGENCY DEPT VISIT 42729 12/02/11 GROUP PSYCHOTHERAPY 23035 10/13/12 OTHER GROUP THERAPY 94.44 09/05/14 Internal Medicine Assmt/Plan - Assessment Assessment: 1.HTN. 2.HYPERLIPIDEMIA. 3.DJD. 4.DEMENTIA. - Plan Plan: CONTINUE ON CURRENT MEDICATION AND DIET. Nutritional Asmnt/Malnutr-PDOC - Dietary Evaluation Malnutrition Findings (Please click <Entered> for more info): Nutritional Asmnt/Malnutrition Start: 03/14/18 13: 04 Text: Status: Complete Freq: Protocol: Document 03/14/18 13:04 [email or web address] (Rec: 03/14/18 13:10 [email or web address]) Nutritional Asmnt/Malnutrition Patient General Information Nutritional Screening Moderate Risk Diagnosis psychosis Pertinent Medical Hx/Surgical Hx HTN, DJD, dementia, psychosis Subjective Information Pt seen sleeping in bed at time of visit. Per EMR, PO intake 100% of meals. Current Diet Order/ Nutrition Support cardiac Pertinent Medications theragran, seroquel Pertinent Labs 03/09 triglycerides 259 Nutritional Hx/Data Height 1.83 m Height (Calculated Centimeters) 182.9 Current Weight (lbs) 72.575 kg Weight (Calculated Kilograms) 72.6 Weight (Calculated Grams) 40238.8 [place] Body Weight 178 Body Mass Index (BMI) 21.7 Weight Status Approriate GI Symptoms GI Symptoms None Last BM not indicated Difficult in: None Skin Integrity/Comment: deliogilmar 18 Current %PO Good (75-100%) Estimated Nutritional Goals BEE in Kcals: Using Current wt Calories/Kcals/Kg 25-30 Kcals Calculated 4300-7259 Protein: Using Current wt Protein g/k.8-1 Protein Calculated 58-73 Fluid: ml 1825-2190ml (1ml/kcal) Nutritional Problem No current Nutrition Prob Problem N/A Malnutrition Alert Is there a minimum of two criteria No selected? Query Text:Check all the applicable criteria. A minimum of two criteria are recommended for diagnosis of either severe or non-severe malnutrition. Malnutrition Related to Morbid Obesity Malnutrition related to morbid obesity No Intervention/Recommendation Comments 1. Continue with cardiac diet as ordered. 2. Monitor PO intake, wt, labs and skin integrity 3. F/U as low risk in 7 days, 7/2 Expected Outcomes/Goals Expected Outcomes/Goals 1. PO intake to meet at least 75% of nutritional needs. 2. Wt stability, skin to remain intact, labs to approach WNL.
--- NOTE | 2018-03-15 04:25 | Progress Notes ---
DATE: 03/14/2018 SUBJECTIVE: Staff was spoken to. The patient is interviewed. Mood is noted to be depressed. Affect is constricted. Coping skills are noted to be still poor. The patient has been isolative and withdrawn, but compared to the previous admissions this time the patient has been settling down and has not been very aggressive or impulsive. PLAN: To continue the patient with the current medications and followup. [facility]# [id number]
[2018-03-15] MEDS: Multivitamin Tab PO SCH (08:15)
--- NOTE | 2018-03-16 02:46 | Progress Notes ---
DATE: 03/15/2018 PSYCHIATRIC PROGRESS NOTE Staff was spoken to. The patient is interviewed. Mood is noted to be irritable. Affect is constricted. Insight and judgment at this time are noted to be still impaired. Impulse control is limited. Coping skills are noted to be limited. The patient has been having difficult time to cope with the stress. The patient however, is not presenting with any threats to harm self or others. The irritability is under control, impulsivity is also under control. ASSESSMENT: The patient is stabilizing. PLAN: To discharge the patient today for followup on outpatient basis. JOB# [id number]
== END 2018-03-15 16:30 | DRG 885 ==
LOC: ER 18:09 → GERO2 20:45
PROVIDERS: ADMIT Psychiatry & Neurology Psychiatry; ATTEND Psychiatry & Neurology Psychiatry
DX: F33.1 Major depressive disorder, recurrent, moderate (principal); F03.91 Unspecified dementia, unspecified severity, with behavioral disturbance; I10 Essential (primary) hypertension; E78.5 Hyperlipidemia, unspecified; M19.90 Unspecified osteoarthritis, unspecified site; E11.9 Type 2 diabetes mellitus without complications; K21.9 Gastro-esophageal reflux disease without esophagitis; Z85.038 Personal history of other malignant neoplasm of large intestine; Z83.3 Family history of diabetes mellitus; Z82.49 Family history of ischemic heart disease and other diseases of the circulatory system; F20.9 Schizophrenia, unspecified
CPT/HCPCS: 36415-UA; 80053-TC; 80061-TC; 80320-TC; 80329-TC; 83036-90; 84443-TC; 84484-TC; 85025-TC; 86592-TC; 93005; Z7610